=== PATIENT | male | born 1940 | race Caucasian/White ===

== ENCOUNTER 2021-03-07 06:10 | Emergency (ER) | payer OTHER, MEDICARE, SELFPAY ==
[2021-03-07 06:11] VITALS: BP 95/50; PULSE 92; RESP 16; TEMP 36; O2SAT 92; BMI 41.6
[2021-03-07 06:33] VITALS: BP 115/87; PULSE 92; RESP 16; O2SAT 92
--- NOTE | 2021-03-07 06:57 | CT_ITS ---
STUDY: CT CERVICAL SPINE WITHOUT CONTRAST REASON FOR EXAM: Male, 80 years old. fall RADIATION DOSAGE (If Supplied By Facility): CTDIvol = ( 31.88 ) mGy, DLP = ( 674.68 ) mGycm TECHNIQUE: High resolution transaxial imaging was performed without contrast material. Sagittal and coronal images were reconstructed. Individualized dose optimization techniques were used for this CT. COMPARISON: None FINDINGS: Normal craniovertebral junction. There are degenerative changes of the anterior atlantoaxial articulation. Normal odontoid process. There is straightening of the normal cervical lordosis. Normal vertebral bodies and posterior osseous elements. Anterior listhesis C2 on C3, C4 and C5, retrolisthesis C5 on C6. There is sclerosis of endplates, disc space narrowing, uncovertebral and facet arthropathy. C2-3: Ankylosis of the left facet joints. Normal central canal and intervertebral neuroforamina. C3-4: Right greater than left uncovertebral arthropathy and spurring. Normal central canal and moderate to severe narrowing of the right intervertebral neuroforamina. C4-5: Normal central canal and moderate narrowing of the intervertebral neuroforamina. C5-6: Severe endplate sclerosis, anterior and posterior spurring, disc space narrowing severe neural foramina narrowing and mild spinal canal stenosis. C6-7: Anterior and posterior spurring, moderate stenosis of central canal and intervertebral neuroforamina. C7-T1: Significant disc space narrowing, spurring. Normal central canal and mild narrowing of the intervertebral neuroforamina. Normal visualized soft tissue structures. CT/Spine Cervical without Contras IMPRESSION: Multilevel degenerative changes, as described above. There is straightening of the normal lordotic curve, a nonspecific finding, which may be due to positioning or which might be due to muscle spasm. There is no acute displaced fracture or dislocation. Electronically Signed: Gisselle Vazquez MD at 7:42 EDT , Service support ,
--- NOTE | 2021-03-07 06:57 | RAD_ITS ---
STUDY: X-RAY - PELVIS AND LEFT HIP REASON FOR EXAM: Male, 80 years old. pain TECHNIQUE: 4 views of the pelvis and hip. 5 images COMPARISON: None. FINDINGS: There are degenerative changes of the visualized lumbar spine. There are multiple calcified phleboliths. There is narrowing with cortical sclerosis and osteophyte formation of the sacroiliac joint consistent with degenerative osteoarthritic changes. Maintained bilateral superior and inferior pubic rami. Maintained pubic symphysis. There are osteoarthritic changes of the femoral head with marginal osteophyte formation. Normal acetabulum. There is moderate articular joint space narrowing of the hip. RAD/HIP, UNI W/ Pelvis 2-3 Views IMPRESSION: Degenerative changes. There is no acute displaced fracture or dislocation. Electronically Signed: Gisselle Vazquez MD at 7:47 EDT , Service support ,
--- NOTE | 2021-03-07 06:57 | CT_ITS ---
STUDY: CT BRAIN WITHOUT CONTRAST REASON FOR EXAM: Male, 80 years old. head injury RADIATION DOSAGE (If Supplied By Facility): CTDIvol = ( 44.99 ) mGy, DLP = ( 796.11 ) mGycm TECHNIQUE: Transaxial CT imaging of the brain was performed without administration of intravenous contrast material. Individualized dose optimization techniques were used for this CT. COMPARISON: No relevant priors. FINDINGS: Normal soft tissue structures. Normal calvarium. Normal size ventricles and extra-axial spaces for the patient''s age. Normal white matter tracts of the cerebral hemispheres. Normal basal ganglia and thalami. Normal brainstem. Normal cerebellum. There is no intracranial hemorrhage. There are no findings of an acute ischemic infarction. Nodular opacification in the bilateral maxillary antra possible retention cyst. Mild mucosal thickening of the ethmoid sinuses. Peridental lucency. Intracranial arteriosclerosis of the carotid and vertebral arteries. CT/Brain/Head without Contrast IMPRESSION: There is no acute intracranial pathology. Other nonacute findings as outlined above. Electronically Signed: Gisselle Vazquez MD at 7:34 EDT , Service support ,
--- NOTE | 2021-03-07 07:31 | EX.ED.DYSGE1 ---
HPI History of Present Illness Chief Complaint: Lower Extremity Injury Narrative Narrative: Patient is a 80-year-old male who still lives at home alone. He states he awoke this morning to take his Synthroid as he normally does. He reports that he was walking towards his medicine counter when he felt pain in his left hip. He states he would turn around to walk back to his bed within the pain caused him to fall landing on his left side. He denies striking his head or any loss of consciousness or blood thinner use. He states that he was able to call 911 rather quickly but that he is not been able to ambulate and secondary to his he was brought in for evaluation [facility] Medical History Hypertension Hypothyroidism Kidney stones Myocardial infarct Non-smoker Home Medications aspirin 81 mg PO DAILY 03/07/21 [History Last Taken Unknown] atorvastatin 40 mg PO QHS 03/07/21 [History Last Taken Unknown] carvedilol 12.5 mg PO BID 03/07/21 [History Last Taken Unknown] hydrochlorothiazide 25 mg PO DAILY 03/07/21 [History Last Taken Unknown] losartan 100 mg PO DAILY 03/07/21 [History Last Taken Unknown] Allergy/AdvReac Type Severity Reaction Status Date / Time lisinopril Allergy Other Verified 03/07/21 06:19 Surgical History (Updated 03/07/21 @ 06:37 by Shailesh Allison) Stented coronary artery Social History Smoking Status: Never smoker ROS ROS ED Constitutional Constitutional ED: Denies chills or fever(s) ENT ENT ED: Denies sore throat Cardiovascular Cardiovascular: Denies chest pain Respiratory/Chest Respiratory/Chest: Denies cough or dyspnea Gastrointestinal Gastrointestinal: Denies abdominal pain, diarrhea, nausea or vomiting Genitourinary Genitourinary ED: Denies dysuria Musculoskeletal Musculoskeletal: Reports other Details: Positive left hip pain ; Denies myalgias Integumentary Denies Abrasions or rash Neurologic Neurologic: Denies headache(s) Hematologic/Lymphatic Hematologic/Lymphatic: Denies easy bleeding or easy bruising EXAM Physical Exam Const Vital Signs: 03/07/21 06:11 03/07/21 06:33 Temperature 96.8 F L Temperature Source Temporal Pulse Rate 92 92 Respiratory Rate 16 16 Blood Pressure 95/50 L 115/87 H Blood Pressure Mean 65 96 Pulse Ox 92 92 Oxygen Delivery Method Room Air Room Air Positive well nourished, well developed and obese General Appearance ED: well developed Nutritional Appearance: obese HEENT Reports moist mucous membranes HEENT Narrative: No signs of depressive basal skull fracture Eyes PERRL and EOMs intact bilaterally Neck supple Neck Narrative: No bony deformity or step off of the cervical spine but there is mild midline pain with palpation Chest Wall palpation of chest normal Resp normal respiratory effort and clear to auscultation bilaterally Cardio regular rate and regular rhythm GI normal to inspection, nondistended, normoactive bowel sounds, non-tender and non-distended Auscultation: normoactive bowel sounds Palpation: soft Back/Spine Back/Spine Narrative: No bony deformity or step off of the thoracic or lumbar spine no midline tenderness noted Extremity Extremity Narrative: Pelvis is stable there is no shortening or external rotation of either lower extremity. There is pain on palpation along the left greater trochanter region of the left femur. No overlying soft tissue changes to suggest trauma or infection. Neuro oriented x3 and CN's II-XII intact bilaterally Sensorium / Orientation: alert Psych mental status grossly normal Skin no rashes or lesions noted MDM MDM MDM Narrative Medical decision making narrative: Patient reported mechanical false I felt no need for cardiac or syncope workup. With the fall CTs and x-rays will be obtained. I feel that if x-rays and images revealed no acute traumatic finding and patient cannot ambulate he will need placed in a rehab center for further treatment Discharge Plan Triage Chief Complaint: Lower Extremity Injury ED Provider: Olaf Willoughby Dx/Rx/DC Orders Prescriptions: No Action atorvastatin 40 mg Tablet 40 mg PO QHS RF: 0 carvedilol 12.5 mg Tablet 12.5 mg PO BID RF: 0 aspirin 81 mg Tablet 81 mg PO DAILY RF: 0 hydrochlorothiazide 25 mg Tablet 25 mg PO DAILY RF: 0 losartan 100 mg Tablet 100 mg PO DAILY RF: 0 Primary Care Provider: [place]
[2021-03-07] MEDS: HYDROcodone Bitartrate/Apap 5/325 Tablet PO (07:55)
[2021-03-07 10:09] VITALS: BP 138/74; PULSE 66; RESP 15; O2SAT 98
[2021-03-07] MEDS: predniSONE 20 MG Tablet 60 MG PO (10:10)
== END 2021-03-07 10:33 | disposition home or self-care (01) ==
PROVIDERS: Emergency Provider Emergency Medicine
DX: S89.92XA Unspecified injury of left lower leg, initial encounter (principal); I25.2 Old myocardial infarction; E66.9 Obesity, unspecified; E03.9 Hypothyroidism, unspecified; I10 Essential (primary) hypertension; Z79.82 Long term (current) use of aspirin; Z79.899 Other long term (current) drug therapy; Z87.442 Personal history of urinary calculi; W19.XXXA Unspecified fall, initial encounter
CPT/HCPCS: 70450; 72125; 73502; 99285

== ENCOUNTER 2021-03-10 17:22 | Emergency (ER) | payer OTHER, SELFPAY ==
[2021-03-10 17:22] VITALS: BP 147/110; PULSE 102; RESP 18; TEMP 36.8; O2SAT 93; BMI 43.4
--- NOTE | 2021-03-10 17:47 | EDS_ITS ---
HPI History of Present Illness Chief Complaint: Fall Informant: patient Narrative Narrative: 80-year-old male presenting after fall. Patient states that he did not lift his leg up completely and caught his foot on a step and fell forward hitting his side on the steps. He did hit his head. He did not lose consciousness. He was seen in the ED 3 days ago for another mechanical fall. He states his hip pain from that fall is improving. Prior similar symptoms: Yes Recent Illness/Hospitalization: No PFSH PFSH Medical History Hypertension Hypothyroidism Kidney stones Myocardial infarct Non-smoker Home Medications acetaminophen [Tylenol 8 Hour] 650 mg PO Q8H PRN #20 tab 03/07/21 [Rx Last Taken Unknown] aspirin 81 mg PO DAILY 03/07/21 [History Last Taken Unknown] atorvastatin 40 mg PO QHS 03/07/21 [History Last Taken Unknown] carvedilol 12.5 mg PO BID 03/07/21 [History Last Taken Unknown] hydrochlorothiazide 25 mg PO DAILY 03/07/21 [History Last Taken Unknown] losartan 100 mg PO DAILY 03/07/21 [History Last Taken Unknown] prednisone 40 mg PO DAILY #8 tab 03/07/21 [Rx Last Taken Unknown] Allergy/AdvReac Type Severity Reaction Status Date / Time lisinopril Allergy Other Verified 03/10/21 17:27 Surgical History Stented coronary artery Social History Smoking Status: Never smoker ROS ROS ED Constitutional Constitutional ED: Denies fever(s) Eyes Eyes: Denies change in vision ENT ENT ED: Denies rhinorrhea or sore throat Cardiovascular Cardiovascular: Denies chest pain or palpitations Respiratory/Chest Respiratory/Chest: Reports other Details: left chest wall pain ; Denies cough or dyspnea Gastrointestinal Gastrointestinal: Denies abdominal pain, diarrhea, nausea or vomiting Genitourinary Genitourinary ED: Denies dysuria Musculoskeletal Musculoskeletal: Denies myalgias Integumentary Denies rash Neurologic Neurologic: Denies headache(s) Psychiatric Psychiatric: Denies suicidal thoughts EXAM Physical Exam Const Vital Signs: 03/10/21 17:22 03/10/21 17:28 03/10/21 19:45 Temperature 98.2 F Temperature Source Oral Pulse Rate 102 H 77 Respiratory Rate 18 16 Respiratory Effort Normal Non-Labored Respiratory Depth Normal Respiratory Pattern Normal Blood Pressure 147/110 H 146/97 H Blood Pressure Mean 122 113 Pulse Ox 93 95 Oxygen Delivery Method Room Air Room Air Room Air Positive well nourished and well developed General Appearance ED: well developed HEENT Reports normocephalic and head/scalp atraumatic Eyes PERRL and EOMs intact bilaterally Neck supple Neck Narrative: no midline tenderness General: Negative for tenderness Chest Wall inspection of chest normal Resp normal respiratory effort and clear to auscultation bilaterally Resp Narrative: left chest wall tenderness with no crepitus Cardio regular rate and regular rhythm GI non-distended GI Narrative: reducible hernia Palpation: soft and tender LUQ; Negative for guarding or rebound tenderness present no CVA tenderness Extremity Extremity Narrative: right knee mild abrasion. Active full range of motion Neuro oriented x3 Sensorium / Orientation: alert Psych mental status grossly normal Skin no rashes or lesions noted and no wounds MDM MDM MDM Narrative Medical decision making narrative: Patient was given Tylenol, declined other pain medication. Creatinine is 1.76. Patient was given IV fluids. CT head and cervical spine show no acute process. CT chest abdomen pelvis shows acute fracture left anterior lateral 5th rib. No other acute abnormality in the ch est. 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 No solid organ injury. Right knee x- ray shows no acute fracture. [facility] He declined pain medication. He was given an incentive spirometer. Advised return to ED for worsening complaints. Lab Data Attestation: I reviewed the patient's lab results. Labs: Laboratory Results - last 24 hr 03/10/21 18:17 Sodium 143 Potassium 4.0 Chloride 104 Carbon Dioxide 34.0 H Anion Gap 5 BUN 41 H Creatinine 1.76 H Estim Creat Clear Calc 32.93 Est GFR (MDRD) Af Amer 48 L Est GFR (MDRD) Non-Af 40 L BUN/Creatinine Ratio 23.3 H Glucose 169 H Calcium 8.7 Radiography Diagnostic Testing: Clinical Impression(s) from Imaging Studies Brain CT 03/10/21 19:00 IMPRESSION: No acute findings in the head/brain and unchanged since 03/07/2021. Electronically Signed: Cleve Platt MD at 19:29 EDT , Service support , Cervical Spine CT 03/10/21 19:00 IMPRESSION: 1. No CT evidence of acute fracture the cervical spine and the craniocervical junction. 2. Mild degenerative anterolisthesis of C2 on C3, C4 on C5 and T1 on T2 are unchanged. 3. No interval changes or new findings when compared to 03/07/2021. Electronically Signed: Cleve Platt MD at 19:33 EDT , Service support , Chest/Abdomen/Pelvis CT 03/10/21 19:00 IMPRESSION: 1. Acute fracture of the left anterior lateral fifth rib. 2. No other acute abnormality in the chest. 3. 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 4. 6.7 mm nonobstructing stone in the right kidney and 7.7 mm nonobstructing stone in the left kidney. 5. No solid organ injury in the abdomen and pelvis. Electronically Signed: Cleve Platt MD at 19:43 EDT , Service support , Knee X-Ray 03/10/21 19:06 IMPRESSION: 1. No acute fracture or dislocation of the right knee. 2. 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 Electronically Signed: Cleve Platt MD at 20:06 EDT , Service support , Discharge Plan Triage Chief Complaint: Fall ED Provider: Destiny Joyce Dx/Rx/DC Orders Prescriptions: No Action atorvastatin 40 mg Tablet 40 mg PO QHS RF: 0 carvedilol 12.5 mg Tablet 12.5 mg PO BID RF: 0 aspirin 81 mg Tablet 81 mg PO DAILY RF: 0 hydrochlorothiazide 25 mg Tablet 25 mg PO DAILY RF: 0 losartan 100 mg Tablet 100 mg PO DAILY RF: 0 prednisone 20 mg tablet 40 mg PO DAILY Qty: 8 RF: 0 acetaminophen [Tylenol 8 Hour] 650 mg tablet extended release 650 mg PO Q8H PRN (Reason: pain) Qty: 20 RF: 0 Primary Care Provider: Hospital,[facility]
[2021-03-10] MEDS: Acetaminophen 500 MG Tablet 1000 MG PO (18:00)
[2021-03-10 18:48] LABS: Anion Gap 5 (5-15); BUN 41 mg/dL (7-18); BUN/Creat Ratio 23.3 RATIO (10-20); Calcium,Total 8.7 mg/dL (8.5-10.1); Chloride 104 mmol/L (98-107); Creatinine, Serum 1.76 mg/dL (0.70-1.30); EST Glomerular Filtration Rate 40 mL/min (>60); Est Glom Filt Rate - Afr Amer 48 mL/min (>60); Estimated Creatinine Clearance 32.93 ml/min; Glucose 169 mg/dL (74-106); Sodium Level 143 mmol/L (136-145)
--- NOTE | 2021-03-10 19:00 | CT_ITS ---
EXAM: CT HEAD WITHOUT INTRAVENOUS CONTRAST CLINICAL INDICATION: Fall injury. TECHNIQUE: Multiple axial images were obtained of the head without intravenous contrast. This CT exam was performed using one or more of the following dose reduction techniques: automated exposure control, adjustment of the mA and/or kV according to patient size, and/or use of iterative reconstruction technique. This report was created using [employer] report generation technology. COMPARISON: CT head without contrast 03/07/2021. FINDINGS: BRAIN AND EXTRA-AXIAL SPACES: Unremarkable. No intra- or extra-axial hemorrhage. No evidence of acute infarct. No intracranial mass or mass effect. There is preservation of the medellin/white matter interface. Posterior fossa structures are unremarkable. Ventricles are appropriate for age. No hydrocephalus. Basal cisterns are patent. BONES/JOINTS: Unremarkable. No discrete lytic or blastic abnormalities. VASCULATURE: Mild tubular calcifications in the cavernous segments of both internal carotid arteries are unchanged. Minimal calcified plaque in the intradural segment of the right vertebral artery. SINUSES: Benign mucus retention cysts in the maxillary sinuses are unchanged. MASTOID AIR CELLS: Unremarkable. Clear. ORBITS: Visualized globes, extraocular muscles, optic nerves and retrobulbar fat appear unremarkable. CT/Brain/Head without Contrast IMPRESSION: No acute findings in the head/brain and unchanged since 03/07/2021. Electronically Signed: Cleve Platt MD at 19:29 EDT , Service support ,
--- NOTE | 2021-03-10 19:00 | CT_ITS ---
EXAM: CT CHEST, ABDOMEN AND PELVIS WITH INTRAVENOUS CONTRAST CLINICAL INDICATION: Fall injury. TECHNIQUE: Helically acquired images were obtained of the chest, abdomen and pelvis with intravenous contrast. This CT exam was performed using one or more of the following dose reduction techniques: automated exposure control, adjustment of the mA and/or kV according to patient size, and/or use of iterative reconstruction technique. This report was created using [employer] report generation technology. CONTRAST: IV 100mL [id number] COMPARISON: None. FINDINGS: ARTIFACTS: Motion degradation artifacts. CHEST: LUNGS AND PLEURAL SPACES: Unremarkable. No mass. No consolidation or edema. No pleural effusion or thickening. No pneumothorax. HEART: Cardiomegaly. Normal pericardium. MEDIASTINUM: Unremarkable. No mediastinal or hilar adenopathy. Esophagus is unremarkable. No hiatal hernia. THYROID: Unremarkable. No thyroid lesions. ABDOMEN: LIVER: Unremarkable. Homogeneous. No focal mass. GALLBLADDER AND BILE DUCTS: Unremarkable. No calcified gallstones. No gallbladder distention or wall edema. No intra- or extrahepatic biliary ductal dilation. PANCREAS: Unremarkable. No focal cystic or solid mass. SPLEEN: Unremarkable. Normal size without focal cystic or solid mass. ADRENALS: Unremarkable. No nodules. KIDNEYS AND URETERS: 6.7 mm nonobstructing stone in the right lower renal pole and 7.7 mm nonobstructing stone in the left upper renal pole. No hydronephrosis in both kidneys. STOMACH AND BOWEL: Prominent right anterior lower abdominal wall hernia containing heterogeneous density of omental fat suggesting at least partial omental ischemic infarction. No herniated bowel. No stomach or bowel distention. No focal inflammatory change. PELVIS: APPENDIX: No evidence of acute appendicitis. BLADDER: Unremarkable. REPRODUCTIVE: Unremarkable as visualized. No mass. CHEST, ABDOMEN and PELVIS: INTRAPERITONEAL SPACE: Unremarkable. No ascites or other fluid collection. No free air. BONES/JOINTS: Acute fracture of the left fifth anterior lateral rib. Old anterior wedge compression fracture of the upper T8 vertebral body. Degenerative disc space height narrowing with degenerative vacuum phenomenon at T8-T9, T9-T10, T10-T11, T11-T12, L1-L2, L2-L3, L3-L4, L4-L5 and L5-S1 disc space levels. Small left-sided L1 benign vertebral body hemangioma. No suspicious lytic or blastic abnormality. SOFT TISSUES: See above. VASCULATURE: Unremarkable. Aorta is non-dilated. No aortic dissection. No obvious central pulmonary embolism although this study was not performed with the pulmonary embolism protocol. LYMPH NODES: Unremarkable. No enlarged lymph nodes. CT/CT Chest, Abd, Pel w/Contrast IMPRESSION: 1. Acute fracture of the left anterior lateral fifth rib. 2. No other acute abnormality in the chest. 3. 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 4. 6.7 mm nonobstructing stone in the right kidney and 7.7 mm nonobstructing stone in the left kidney. 5. No solid organ injury in the abdomen and pelvis. Electronically Signed: Cleve Platt MD at 19:43 EDT , Service support ,
--- NOTE | 2021-03-10 19:00 | CT_ITS ---
EXAM: CT CERVICAL SPINE WITHOUT INTRAVENOUS CONTRAST CLINICAL INDICATION: Fall injury. Right TECHNIQUE: Helically acquired images were obtained of the cervical spine without intravenous contrast. 2D reformatted images were reviewed. This CT exam was performed using one or more of the following dose reduction techniques: automated exposure control, adjustment of the mA and/or kV according to patient size, and/or use of iterative reconstruction technique. This report was created using [employer] report [employer] technology. COMPARISON: CT cervical spine without contrast 03/07/2021. FINDINGS: VERTEBRAE: Minimal degenerative anterolisthesis of C2 on C3, C4 on C5 and T1 on T2 are unchanged. DISCS/SPINAL CANAL/NEURAL FORAMINA: Pronounced disc space height narrowing with endplate sclerosis at C5-C6 and C6-C7 disc space levels are unchanged. Ankylosis of the left C2-C3 facet joint was present previously. Moderate stenosis of the right C3-C4 facet joint and moderate stenosis of the left C4-C5 facet joint are unchanged. Moderate stenosis of the bilateral C5-C6 intervertebral neural foramina and bilateral C6-C7 intervertebral neural foramina are unchanged. SOFT TISSUES: Unremarkable. No prevertebral soft tissue swelling. LYMPH NODES: Unremarkable. No cervical adenopathy. LUNG APICES: Unremarkable as visualized. Clear. CT/Spine Cervical without Contras IMPRESSION: 1. No CT evidence of acute fracture the cervical spine and the craniocervical junction. 2. Mild degenerative anterolisthesis of C2 on C3, C4 on C5 and T1 on T2 are unchanged. 3. No interval changes or new findings when compared to 03/07/2021. Electronically Signed: Cleve Platt MD at 19:33 EDT , Service support ,
--- NOTE | 2021-03-10 19:06 | RAD_ITS ---
EXAM: XR RIGHT KNEE, 1 OR 2 VIEWS CLINICAL INDICATION: Fall injury. TECHNIQUE: Frontal and/or lateral views of the right knee. This report was created using [employer] report [employer] technology. COMPARISON: None. FINDINGS: BONES/JOINTS: Pronounced narrowing with sclerosis of the articular surfaces of the medial femorotibial compartment. Osteophytic spur in the medial proximal tibial condyle. Mild degenerative narrowing of the patellofemoral articulation. Tripartite patella is a developmental variation of normal. No acute fracture. No subluxation. Normal alignment. SOFT TISSUES: Soft tissue swelling overlying the patella, above the patella and below the patella. No radiopaque foreign body. RAD/Knee 1 or 2 Views IMPRESSION: 1. No acute fracture or dislocation of the right knee. 2. 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 Electronically Signed: Cleve Platt MD at 20:06 EDT , Service support ,
[2021-03-10] MEDS: 0.9% Normal Saline 1,000 ML 999 ML IV (19:18)
[2021-03-10 19:45] VITALS: BP 146/97; PULSE 77; RESP 16; O2SAT 95
[2021-03-10 21:14] VITALS: BP 146/90; PULSE 80; RESP 16; O2SAT 95
== END 2021-03-10 21:37 | disposition home or self-care (01) ==
PROVIDERS: Emergency Provider Emergency Medicine
DX: S22.32XA Fracture of one rib, left side, initial encounter for closed fracture (principal); I10 Essential (primary) hypertension; I25.2 Old myocardial infarction; Z79.82 Long term (current) use of aspirin; Z79.52 Long term (current) use of systemic steroids; Z79.899 Other long term (current) drug therapy; W10.9XXA Fall (on) (from) unspecified stairs and steps, initial encounter
CPT/HCPCS: 36415; 70450; 71260; 72125; 73560; 74177; 80048; 96360; 99285; Q9967; A4216

== ENCOUNTER 2021-04-07 23:31 | Emergency (ER) | payer OTHER, SELFPAY ==
[2021-04-07 23:31] VITALS: BP 124/78; PULSE 82; RESP 15; TEMP 36.4; O2SAT 98; BMI 40.9
[2021-04-07 23:41] LABS: Bedside Glucose 149 mg/dL (70-110)
--- NOTE | 2021-04-07 23:45 | CT_ITS ---
STUDY: CT ABDOMEN AND PELVIS WITH CONTRAST REASON FOR EXAM: Male, 80 years old. Incarcerated umbilical hernia RADIATION DOSAGE (If Supplied By Facility): CTDIvol = ( 31.42 ) mGy, DLP = ( 1828.31 ) mGycm TECHNIQUE: Transaxial images were obtained from the dome of the diaphragm to the symphysis pubis without oral contrast. IV 100mL Isovue-370 was administered. Sagittal and coronal images were reconstructed. Individualized dose optimization techniques were used for this CT. COMPARISON: None. FINDINGS: The visualized lung bases are unremarkable. The visualized portions of the heart are within normal limits. Left lobe liver cyst, otherwise unremarkable liver. Normal gallbladder and extrahepatic biliary system. Normal spleen. There is diffuse atrophy of the pancreas. Normal bilateral adrenal glands. Bilateral nonobstructing nephroliths, largest in the right lower pole measuring 8.4 mm and largest in the left upper pole measuring 8.6 mm. Otherwise, mild atrophy of the kidneys. Normal visualized stomach. Proximal loops of small bowel demonstrating mild distention with air-fluid levels. There is transition point in the central mid abdomen. There is a ventral wall abdominal hernia containing fluid and fat however, no loops of bowel. Remainder of the small bowel is within normal limits. Large bowel demonstrates chronic diverticulosis with acute diverticulitis. The appendix is visualized and appears normal. Normal abdominal aorta. Normal inferior vena cava. Normal retroperitoneum. Normal urinary bladder. There are prostatic calcifications. Normal abdominal wall. Normal osseous structures. CT/Abdomen/Pelvis W IV Cont ONLY IMPRESSION: Multiple loops of proximal small bowel demonstrating distention with air-fluid levels. Transition point in the central abdomen adjacent to a ventral wall hernia containing fat and fluid. No evidence of loops of bowel within this hernia however. Possible adhesions. Early small bowel obstruction should be considered a possibility. Remainder the exam is within normal limits Electronically Signed: Yves Gallagher DO at 1:06 EST Tel , Service support ,
--- NOTE | 2021-04-07 23:49 | EX.ED.DYSGE1 ---
HPI History of Present Illness Chief Complaint: Dizziness Narrative Narrative: Patient is a 80-year-old male who was seen twice in February secondary to falls. He states that this evening he stood up and he felt a sharp pain in his abdomen. He states after the pain came on he felt lightheaded and dizzy but did not fall. He reports the pain in his abdomen has been constant since its onset and when he pushes on the area it feels hard. Secondary to this he presents for evaluation PFSH PFSH Medical History Hypertension Hypothyroidism Kidney stones Myocardial infarct Non-smoker Home Medications acetaminophen [Tylenol 8 Hour] 650 mg PO Q8H PRN #20 tab 03/07/21 [Rx Last Taken Unknown] aspirin 81 mg PO DAILY 03/07/21 [History Last Taken Unknown] atorvastatin 40 mg PO QHS 03/07/21 [History Last Taken Unknown] carvedilol 12.5 mg PO BID 03/07/21 [History Last Taken Unknown] hydrochlorothiazide 25 mg PO DAILY 03/07/21 [History Last Taken Unknown] losartan 100 mg PO DAILY 03/07/21 [History Last Taken Unknown] prednisone 40 mg PO DAILY #8 tab 03/07/21 [Rx Last Taken Unknown] Allergy/AdvReac Type Severity Reaction Status Date / Time lisinopril Allergy Other Verified 03/10/21 17:27 Surgical History Stented coronary artery Social History Smoking Status: Never smoker ROS ROS ED Constitutional Constitutional ED: Denies chills or fever(s) ENT ENT ED: Denies sore throat Cardiovascular Cardiovascular: Denies chest pain Respiratory/Chest Respiratory/Chest: Denies cough or dyspnea Gastrointestinal Gastrointestinal: Reports abdominal pain; Denies diarrhea, nausea or vomiting Genitourinary Genitourinary ED: Denies dysuria Musculoskeletal Musculoskeletal: Denies myalgias Integumentary Denies rash Neurologic Neurologic: Reports other Details: Positive dizziness ; Denies headache(s) Hematologic/Lymphatic Hematologic/Lymphatic: Denies easy bleeding or easy bruising EXAM Physical Exam Const Vital Signs: 04/07/21 23:31 04/08/21 00:04 04/08/21 00:12 Temperature 97.5 F L Temperature Source Axillary Pulse Rate 82 81 Respiratory Rate 15 16 Respiratory Pattern Normal Blood Pressure 124/78 H 120/81 H Blood Pressure Mean 93 94 Pulse Ox 98 95 Oxygen Delivery Method Room Air Room Air Positive well nourished, well developed and obese General Appearance ED: well developed Nutritional Appearance: obese HEENT Reports moist mucous membranes Eyes PERRL and EOMs intact bilaterally Neck supple Resp normal respiratory effort and clear to auscultation bilaterally Cardio regular rate and regular rhythm GI GI Narrative: Abdomen is obese and soft with normal active bowel sounds there is an umbilical hernia present that is incarcerated and tender to palpation. No surrounding secondary changes to suggest infection Extremity normal to inspection Neuro oriented x3 and CN's II-XII intact bilaterally Sensorium / Orientation: alert Psych mental status grossly normal Skin no rashes or lesions noted MDM MDM MDM Narrative Medical decision making narrative: Patient presented to the ER with an incarcerated umbilical hernia. Secondary to this I ordered basic laboratory studies and patient had an ice pack placed on the hernia and was given pain medication. I also elected perform a CT scan of his abdomen based on the incarcerated hernia. He reported that his dizziness only occurred after he stood up and felt the pain from the hernia and therefore did not feel there was a need for a cardiac evaluation. Also patient did not strike his head and he has had 2 normal head CTs in the past 30 days so I felt no need for repeat head CT. The patient had manual pressure applied to the abdomen prior to the CT scan after he had ice and pain medication and the hernia became reducible. The CT scan documented the hernia but did not show any incarceration. It did show air-fluid levels which could be early bowel obstruction but I feel this is from the incarceration and now that as this is resolved there is no concern for obstruction. Patient is also not having vomiting or constipation. After the incarcerated hernia was resolved the patient was able to ambulate with a steady gait to and from the bathroom. Therefore at this time with resolution of the hernia and the fact he can ambulate with a steady gait he is safe for discharge Lab Data Attestation: I reviewed the patient's lab results. Labs: Laboratory Results - last 24 hr 04/07/21 04/07/21 04/07/21 00:02 00:02 00:02 WBC 7.7 RBC 4.74 Hgb 14.3 Hct 43.7 MCV 92.2 MCH 30.2 MCHC 32.7 RDW Std Deviation 47.4 H RDW Coeff of [place] 13.8 Plt Count 153 MPV 10.4 Immature Gran % (Auto) 0.500 Neut % (Auto) 76.9 H Lymph % (Auto) 14.3 L [place] % (Auto) 5.7 Eos % (Auto) 2.2 Baso % (Auto) 0.4 Absolute Neuts (auto) 5.9 Absolute Lymphs (auto) 1.10 Nucleated RBC % 0 PT 13.2 INR 1.1 APTT 28.1 Sodium 139 Potassium 3.9 Chloride 104 Carbon Dioxide 30.0 Anion Gap 5 BUN 16 Creatinine 1.28 Estim Creat Clear Calc 48.32 Est GFR (MDRD) Af Amer 70 Est GFR (MDRD) Non-Af 58 L BUN/Creatinine Ratio 12.5 Glucose 134 H Lactic Acid Calcium 8.6 POC Glucose 04/07/21 04/07/21 00:02 23:36 WBC RBC Hgb Hct MCV MCH MCHC RDW Std Deviation RDW Coeff of [place] Plt Count MPV Immature Gran % (Auto) Neut % (Auto) Lymph % (Auto) [place] % (Auto) Eos % (Auto) Baso % (Auto) Absolute Neuts (auto) Absolute Lymphs (auto) Nucleated RBC % PT INR APTT Sodium Potassium Chloride Carbon Dioxide Anion Gap BUN Creatinine Estim Creat Clear Calc Est GFR (MDRD) Af Amer Est GFR (MDRD) Non-Af BUN/Creatinine Ratio Glucose Lactic Acid 0.9 Calcium POC Glucose 149 H Radiography Diagnostic Testing: Clinical Impression(s) from Imaging Studies Abdomen/Pelvis CT 04/07/21 23:45 IMPRESSION: Multiple loops of proximal small bowel demonstrating distention with air-fluid levels. Transition point in the central abdomen adjacent to a ventral wall hernia containing fat and fluid. No evidence of loops of bowel within this hernia however. Possible adhesions. Early small bowel obstruction should be considered a possibility. Remainder the exam is within normal limits Electronically Signed: Yves Gallagher DO at 1:06 EST Tel , Service support , Discharge Plan Triage Chief Complaint: Dizziness ED Provider: Olaf Willoughby Dx/Rx/DC Orders Clinical Impression: Incarcerated umbilical hernia Instructions: ED Hernia (Adult) Prescriptions: No Action atorvastatin 40 mg Tablet 40 mg PO QHS RF: 0 carvedilol 12.5 mg Tablet 12.5 mg PO BID RF: 0 aspirin 81 mg Tablet 81 mg PO DAILY RF: 0 hydrochlorothiazide 25 mg Tablet 25 mg PO DAILY RF: 0 losartan 100 mg Tablet 100 mg PO DAILY RF: 0 prednisone 20 mg tablet 40 mg PO DAILY Qty: 8 RF: 0 acetaminophen [Tylenol 8 Hour] 650 mg tablet extended release 650 mg PO Q8H PRN (Reason: pain) Qty: 20 RF: 0 [facility] [facility] [[facility] Provider] - Disposition Disposition: Home, Self Care
[2021-04-08 00:04] VITALS: BP 120/81; PULSE 81; RESP 16; O2SAT 95
[2021-04-08] MEDS: Ondansetron 4 MG/2 ML Vial IV (00:10)
[2021-04-08] MEDS: fentaNYL 100 MCG/2 ML Ampul 50 MCG IV (00:10)
[2021-04-08 00:14] LABS: Absolute Neutrophil Count 5.9 X10^3/uL (2.0-7.7); Basophil# 0.03 X10^3/uL; Basophil% 0.4 % (0-1); Eosinophil# 0.17 X10^3/uL; Eosinophils% 2.2 % (0-5); Hematocrit 43.7 % (40-54); Hemoglobin 14.3 g/dL (13.0-16.5); Lymphocyte % 14.3 % (19-41); Mean Corp Hgb Conc 32.7 g/dL (32-36); Mean Corpuscular Hgb 30.2 pg (27.0-32.0); Mean Corpuscular Volume 92.2 fL (80-94); Mean Platelet Vol. 10.4 fl (6.2-12.0); Monocyte# 0.44 X10^3/uL; Monocyte% 5.7 % (0-10); NRBC Flagged by Analyzer 0 % (0-5); Neutrophil # 5.91 X10^3/uL (2.7-7.7); Neutrophil % 76.9 % (47-70); Platelet Count 153 K/mm3 (150-450); RBC Distribution Width CV 13.8 % (11.6-14.6); RBC Distribution Width SD 47.4 fl (35.1-43.9); Red Blood Count 4.74 M/mm3 (4.6-6.2); White Blood Count 7.7 K/mm3 (4.4-11.0)
[2021-04-08 00:25] LABS: Anion Gap 5 (5-15); BUN 16 mg/dL (7-18); BUN/Creat Ratio 12.5 RATIO (10-20); Calcium,Total 8.6 mg/dL (8.5-10.1); Chloride 104 mmol/L (98-107); Creatinine, Serum 1.28 mg/dL (0.70-1.30); EST Glomerular Filtration Rate 58 mL/min (>60); Est Glom Filt Rate - Afr Amer 70 mL/min (>60); Estimated Creatinine Clearance 48.32 ml/min; Glucose 134 mg/dL (74-106); Potassium 3.9 mmol/L (3.5-5.1); Sodium Level 139 mmol/L (136-145)
[2021-04-08 00:26] LABS: International Normalized Ratio 1.1; Prothrombin Time (Protime)PT. 13.2 SECONDS (11.7-14.9)
[2021-04-08 00:27] LABS: Partial Thromboplast Time 28.1 Seconds (24.1-36.2)
[2021-04-08 00:36] LABS: Lactic Acid 0.9 mmol/L (0.4-1.9)
[2021-04-08 02:13] VITALS: BP 144/88; PULSE 85; RESP 18; O2SAT 99
[2021-04-08 02:14] VITALS: BP 144/88; PULSE 77; RESP 16; O2SAT 99
== END 2021-04-08 02:28 | disposition home or self-care (01) ==
PROVIDERS: Emergency Provider Emergency Medicine
DX: K42.0 Umbilical hernia with obstruction, without gangrene (principal); E66.9 Obesity, unspecified; I25.2 Old myocardial infarction; I10 Essential (primary) hypertension; Z79.82 Long term (current) use of aspirin; Z87.442 Personal history of urinary calculi; Z79.52 Long term (current) use of systemic steroids; Z79.899 Other long term (current) drug therapy
CPT/HCPCS: 74177; 80048; 82962; 83605; 85025; 85610; 85730; 96374; 96375; 99285; J7040; Q9967; A4216; J2405

== ENCOUNTER 2021-04-23 06:37 | Observation (INO) | payer OTHER, SELFPAY ==
[2021-04-23 06:38] VITALS: BP 142/90; PULSE 86; RESP 18; TEMP 36; O2SAT 96; BMI 41.5
--- NOTE | 2021-04-23 07:13 | RAD_ITS ---
STUDY: X-RAY - PELVIS AND BILATERAL HIPS REASON FOR EXAM: Bilateral hip pain, no specific injury. TECHNIQUE: AP view of the pelvis.? 2 views of the right hip, and 2 views of the left hip were obtained. COMPARISON: Radiographs 03/07/2021. FINDINGS: There are pelvic phleboliths. There is arthrosis of the left sacroiliac joint. Normal bilateral superior and inferior pubic rami. Normal pubic symphysis. Normal bilateral ischial tuberosities. Normal visualized right femoral head. Normal right acetabulum. Normal right hip joint. Normal visualized left femoral head. Normal left acetabulum. There are marginal osteophytes and joint space narrowing of the left hip joint as on the prior study. RAD/Hips B/L min 2 views w/ Pelvis IMPRESSION: Left hip arthrosis. Left sacroiliac arthrosis. Electronically Signed: Ochoa Benavides MD at 8:40 EST Tel , Service support ,
--- NOTE | 2021-04-23 07:24 | EX.ED.DYSGE1 ---
HPI History of Present Illness Chief Complaint: Lower Extremity Injury Informant: patient Narrative Narrative: Patient presents secondary to bilateral hip pain. Pain is been ongoing for some time. He was seen in the ER twice earlier this month with falls. Patient [facility]. He reports frustration with getting care and improvement that he needs. He did state to me that if he had he had a gun last night he might of killed himself. PFSH PFSH Medical History Hypertension Hypothyroidism Kidney stones Myocardial infarct Non-smoker Home Medications acetaminophen [Tylenol 8 Hour] 650 mg PO Q8H PRN #20 tab 03/07/21 [Rx Last Taken Unknown] aspirin 81 mg PO DAILY 03/07/21 [History Last Taken Unknown] atorvastatin 40 mg PO QHS 03/07/21 [History Last Taken Unknown] carvedilol 12.5 mg PO BID 03/07/21 [History Last Taken Unknown] hydrochlorothiazide 25 mg PO DAILY 03/07/21 [History Last Taken Unknown] losartan 100 mg PO DAILY 03/07/21 [History Last Taken Unknown] prednisone 40 mg PO DAILY #8 tab 03/07/21 [Rx Last Taken Unknown] Synthroid 04/23/21 [History Last Taken Unknown] Allergy/AdvReac Type Severity Reaction Status Date / Time lisinopril Allergy Other Verified 03/10/21 17:27 Surgical History Stented coronary artery Social History Smoking Status: Never smoker ROS ROS ED Constitutional Constitutional ED: Denies chills or fever(s) Eyes Eyes: Denies change in vision ENT ENT ED: Denies sore throat Cardiovascular Cardiovascular: Denies chest pain Respiratory/Chest Respiratory/Chest: Denies cough or dyspnea Gastrointestinal Gastrointestinal: Denies abdominal pain, diarrhea, nausea or vomiting Genitourinary Genitourinary ED: Denies dysuria Musculoskeletal Musculoskeletal: Reports arthralgias; Denies back pain Integumentary Denies rash Neurologic Neurologic: Denies headache(s) or weakness Allergic/Immunologic Allergic/Immunologic ED: Denies urticaria EXAM Physical Exam Const Vital Signs: 04/23/21 06:38 Temperature 96.8 F L Temperature Source Temporal Pulse Rate 86 Respiratory Rate 18 Blood Pressure 142/90 H Blood Pressure Mean 107 Pulse Ox 96 Oxygen Delivery Method Room Air Positive well nourished and well developed General Appearance ED: well developed HEENT Reports moist mucous membranes Eyes PERRL and EOMs intact bilaterally Neck supple Chest Wall inspection of chest normal and palpation of chest normal Resp normal respiratory effort and clear to auscultation bilaterally Cardio regular rate and regular rhythm GI normal to inspection, nondistended, normoactive bowel sounds and non-tender Palpation: soft Extremity Extremity Narrative: Tenderness palpation over the greater trochanters bilaterally. Equal leg lengths. Strong distal pulses. No pain with logroll. Neuro Sensorium / Orientation: alert Psych Mood & Affect: anxious Skin no rashes or lesions noted MDM MDM MDM Narrative Medical decision making narrative: Lab work obtained along with Covid test. Pelvis and bilateral hip x-rays ordered. Lab Data Labs: Laboratory Results - last 24 hr 04/23/21 04/23/21 07:50 07:50 WBC 6.8 RBC 4.40 L Hgb 13.4 Hct 40.8 MCV 92.7 MCH 30.5 MCHC 32.8 RDW Std Deviation 47.6 H RDW Coeff of [place] 14.0 Plt Count 146 L MPV 10.3 Immature Gran % (Auto) 0.400 Neut % (Auto) 73.1 H Lymph % (Auto) 16.5 L [place] % (Auto) 7.1 Eos % (Auto) 2.5 Baso % (Auto) 0.4 Absolute Neuts (auto) 4.9 Absolute Lymphs (auto) 1.12 Nucleated RBC % 0 Sodium 141 Potassium 3.7 Chloride 106 Carbon Dioxide 31.0 Anion Gap 4 L BUN 18 Creatinine 1.17 Estim Creat Clear Calc 52.86 Est GFR (MDRD) Af Amer 77 Est GFR (MDRD) Non-Af 64 BUN/Creatinine Ratio 15.4 Glucose 121 H Calcium 8.2 L Radiography Diagnostic Testing: Clinical Impression(s) from Imaging Studies Hip/Pelvis X-Ray 04/23/21 07:13 IMPRESSION: Left hip arthrosis. Left sacroiliac arthrosis. Electronically Signed: Ochoa Benavides MD at 8:40 EST Tel , Service support , Treatment and Re-Evaluation Comments:: Lab work unremarkable. X-rays reveal chronic arthrosis with no acute findings. Patient was seen by social work. She did make phone calls to the [facility] but they are unable to accommodate him at this time. After she discussed the case with him he did agree for other placement as he is unable to care for himself at home. He will require hospital admission. Hospitalist is on page. Discharge Plan Triage Chief Complaint: Lower Extremity Injury ED Provider: Lexy Carranza Dx/Rx/DC Orders Clinical Impression: Weakness, Hip pain, right Prescriptions: No Action atorvastatin 40 mg Tablet 40 mg PO QHS RF: 0 carvedilol 12.5 mg Tablet 12.5 mg PO BID RF: 0 aspirin 81 mg Tablet 81 mg PO DAILY RF: 0 hydrochlorothiazide 25 mg Tablet 25 mg PO DAILY RF: 0 losartan 100 mg Tablet 100 mg PO DAILY RF: 0 prednisone 20 mg tablet 40 mg PO DAILY Qty: 8 RF: 0 acetaminophen [Tylenol 8 Hour] 650 mg tablet extended release 650 mg PO Q8H PRN (Reason: pain) Qty: 20 RF: 0 Synthroid RF: 0 [facility] Care Provider[facility] [facility] [[facility] Provider] - Disposition Disposition: Acute Care Hospital [facility]
[2021-04-23 08:09] LABS: Absolute Lymphocyte Count 1.12 X10^3/uL (0.83-4.51); Absolute Neutrophil Count 4.9 X10^3/uL (2.0-7.7); Basophil# 0.03 X10^3/uL; Basophil% 0.4 % (0-1); Eosinophil# 0.17 X10^3/uL; Eosinophils% 2.5 % (0-5); Hematocrit 40.8 % (40-54); Hemoglobin 13.4 g/dL (13.0-16.5); Lymphocyte # 1.12 X10^3/ul (0.83-4.51); Lymphocyte % 16.5 % (19-41); Mean Corp Hgb Conc 32.8 g/dL (32-36); Mean Corpuscular Hgb 30.5 pg (27.0-32.0); Mean Corpuscular Volume 92.7 fL (80-94); Mean Platelet Vol. 10.3 fl (6.2-12.0); Monocyte# 0.48 X10^3/uL; Monocyte% 7.1 % (0-10); NRBC Flagged by Analyzer 0 % (0-5); Neutrophil # 4.94 X10^3/uL (2.7-7.7); Neutrophil % 73.1 % (47-70); Platelet Count 146 K/mm3 (150-450); RBC Distribution Width SD 47.6 fl (35.1-43.9); White Blood Count 6.8 K/mm3 (4.4-11.0)
[2021-04-23 08:23] LABS: Anion Gap 4 (5-15); BUN 18 mg/dL (7-18); BUN/Creat Ratio 15.4 RATIO (10-20); Calcium,Total 8.2 mg/dL (8.5-10.1); Chloride 106 mmol/L (98-107); Creatinine, Serum 1.17 mg/dL (0.70-1.30); EST Glomerular Filtration Rate 64 mL/min (>60); Est Glom Filt Rate - Afr Amer 77 mL/min (>60); Estimated Creatinine Clearance 52.86 ml/min; Glucose 121 mg/dL (74-106); Potassium 3.7 mmol/L (3.5-5.1); Sodium Level 141 mmol/L (136-145)
--- NOTE | 2021-04-23 10:55 | CM.ED ---
SOCIAL WORK Referral Source: Dr. Carranza Reason for Consult: Discharge planning Informed by Dr. Carranza, patient wanting to get into the [facility]. Call to [facility], left message for Angeles in Admissions. Awaiting call back at this time. Plan: SHWETHA Tavares, STEEL FABRICATOR, YOUTH MINISTRY DIRECTOR
--- NOTE | 2021-04-23 11:09 | CM.ED ---
Received call back fromAngeles with [facility]. Per Angeles, patient has not been to [facility] since 2004. Patient will need to re-apply and there is a 3-4 month wait list. Patient updated and reports concerns with going home and being able to care for self. Patient believes would benefit from placement and requests this worker speak with Anum from [facility]. Shantel Tavares, PLATE CLEANER, EXPORT ADMINISTRATOR
--- NOTE | 2021-04-23 11:40 | CM.ED ---
Spoke with Anum through [facility]. Per Anum, aware that patient will need to re-apply to [facility] and wait list of 3-4 months. Anum states spoke with [facility] and they are not taking new admissions at this time. Anum recommending this worker contact [facility] as they are in network with [place]. Call to [facility], left message for admissions. Awaiting call back at this time. Dr. Carranza updated. Plan: SHWETHA Tavares, TEACHER OF GIFTED STUDENTS, GENERAL HARDWARE SALESPERSON
--- NOTE | 2021-04-23 12:21 | CM.ED ---
SOCIAL WORK Discussed patient's comment made to physician about If I woulda had a gun I would have shot myself. Patient denies suicidal ideation. Patient states was just feeling helpless, ya know? Patient does not feel safe in the home as he is unable to care for self and reports more confusion. Patient has repeated same information to this worker 3 times. Patient in agreement with [facility] placement and hopes to eventually get into the [facility]. Patient in agreement to have referral faxed to [facility] if able to accommodate patient. Received call back from Admissions with [facility] who reports will need to submit to [place] for authorization and can take 1-[address] Carranza. Referral has been faxed to [facility] at this time. Shantel Tavares, SOFTWARE PROGRAMMER, DEMOLITION HAMMER OPERATOR
--- NOTE | 2021-04-23 12:49 | HP.PCM.HOS_ITS ---
HPI - General HPI Narrative ELVIN HOPPER, is a 80 M who presents with bilateral leg pain. Patient has significant medical comorbidities including hypertension dyslipidemia as well as hypothyroidism. Patient had been seen twice in the ED a month ago with multiple falls. He did sustain a left fifth rib fracture which has healed. Woke up on the morning of his admission with significant pain involving both lower extremities. He apparently did fall. He presented to the emergency department as a result. An assessment of adult failure to thrive was made. Admitted to regular nursing floor with consultation placed to case management to assist with disposition possibly to a [facility] facility for rehab [facility] Medical History Hypertension Hypothyroidism Kidney stones Myocardial infarct Non-smoker Home Medications acetaminophen [Tylenol 8 Hour] 650 mg PO Q8H PRN #20 tab 03/07/21 [Rx Last Taken Unknown] aspirin 81 mg PO DAILY 03/07/21 [History Last Taken Unknown] atorvastatin 40 mg PO QHS 03/07/21 [History Last Taken Unknown] carvedilol 12.5 mg PO BID 03/07/21 [History Last Taken Unknown] hydrochlorothiazide 25 mg PO DAILY 03/07/21 [History Last Taken Unknown] losartan 100 mg PO DAILY 03/07/21 [History Last Taken Unknown] prednisone 40 mg PO DAILY #8 tab 03/07/21 [Rx Last Taken Unknown] Synthroid 04/23/21 [History Last Taken Unknown] Allergy/AdvReac Type Severity Reaction Status Date / Time lisinopril Allergy Other Verified 03/10/21 17:27 Family History (Updated 04/23/21 @ 13:[address] Vincenzo Salgado MD) Father Hypertension Surgical History Stented coronary artery Social History Smoking Status: Never smoker ROS ROS Narrative GENERAL: denies fever, chills, night sweats, HEENT: denies headache, sinus congestion, RESPIRATORY: denies cough, sputum production, CARDIAC: denies chest pain, palpitations, GASTROINTESTINAL: denies abdominal pain, GENITOURINARY: denies dysuria, urgency, frequency, EXTREMITY: denies swelling MUSCULOSKELETAL: Bilateral hip pain NEUROLOGIC: denies focal numbness, weakness, tingling HEMATOLOGIC: denies easy bruising and/or hemorrhage INTEGUMENT: denies rashes PSYCHIATRIC: denies suicidal or homicidal ideation Vital Signs Vital Signs Vital Signs: 04/23/21 06:38 Temperature 96.8 F L Temperature Source Temporal Pulse Rate 86 Respiratory Rate 18 Blood Pressure 142/90 H Blood Pressure Mean 107 Pulse Ox 96 Oxygen Delivery Method Room Air Weight Weight: 131.4 kg Body Mass Index (BMI) 41.5 Physical Exam Narrative GENERAL: cooperative HEENT: Atraumatic; EYES; Anicteric, Normal Conjunctiva NECK; supple, normal thyroid, RESPIRATORY: Diminished to auscultation CARDIOVASCULAR: Regular S1 S2, GI: soft, normoactive bowel sounds, : No Renal angle tenderness; EXTREMITIES: No edema, no clubbing, MUSCULOSKELETAL: no muscle waisting NEURO: Awake; no lateralizing signs. SKIN: No Rash PSYCH; Flat affect Results Lab / Micro Data Result Diagrams: 04/23/21 07:50 04/23/21 07:50 Labs: Laboratory Results - last 24 hr 04/23/21 07:50: WBC 6.8, RBC 4.40 L, Hgb 13.4, Hct 40.8, MCV 92.7, MCH 30.5, MCHC 32.8, RDW Std Deviation 47.6 H, RDW Coeff of [place] 14.0, Plt Count 146 L, MPV 10.3, Immature Gran % (Auto) 0.400, Neut % (Auto) 73.1 H, Lymph % (Auto) 16.5 L, [place] % (Auto) 7.1, Eos % (Auto) 2.5, Baso % (Auto) 0.4, Absolute Neuts (auto) 4.9, Absolute Lymphs (auto) 1.12, Nucleated RBC % 0 04/23/21 07:50: Sodium 141, Potassium 3.7, Chloride 106, Carbon Dioxide 31.0, Anion Gap 4 L, BUN 18, Creatinine 1.17, Estim Creat Clear Calc 52.86, Est GFR (MDRD) Af Amer 77, Est GFR (MDRD) Non-Af 64, BUN/Creatinine Ratio 15.4, Glucose 121 H, Calcium 8.2 L Micro: Microbiology 04/23/21 07:45 Nasal Secretion SARS-CoV-2 Antigen (Rapid) - Final Radiology Impression Hip/Pelvis X-Ray 04/23/21 07:13 IMPRESSION: Left hip arthrosis. Left sacroiliac arthrosis. Electronically Signed: Ochoa Benavides MD at 8:40 EST Tel , Service support , Assessment & Plan Assessment/Plan (1) Hip pain, right: (2) Weakness: PLAN: Patient is a 80-year-old gentleman presented with progressive generalized weakness and bilateral hip pain 1. Physical deconditioning with progressive lower extremity weakness and falls - Requested for PT OT eval and social media job titles to assist with discharge planning 2. Hypertension - Blood pressure controlled, home medications continued with dose adjustment as needed 3. Hypothyroidism - Patient is on levothyroxine home dose continued 4. Dyslipidemia -Patient is on statin therapy, continued at home dose 5. Coronary artery disease ?With previous history of CT 6. Class III obesity with BMI of 41.6 ?Weight loss advised 7. DVT prophylaxis ?Lovenox Advance planning; did discuss with the patient regarding advanced directives as well as CODE STATUS. Did explain the various scenarios involved ( FULL CODE, DNR CCA, DNR CCA with no intubation, and DNR CC and what each meant) patient elected to to remain full code with CPR and intubation if warranted. Order was placed. Time spent on discussion 18 minutes. Charges/Coding Visit Charges OBSV E&M: 28862 Initial observation care L3 Procedures Hospitalists Procedures: 54453 Advncd Care Plan 30 Min
[2021-04-23 15:37] VITALS: BP 115/89; PULSE 81; RESP 17; TEMP 36.8; O2SAT 97
--- NOTE | 2021-04-23 15:45 | CM.ED ---
Received call from [facility] with Admissions from [facility]. Per Nicol, patient has been medically cleared for admission to [facility] and will be submitting for insurance authorization.
[2021-04-23 17:44] VITALS: BP 115/69; PULSE 66; RESP 18; O2SAT 97
[2021-04-23 18:34] VITALS: BMI 40.1
[2021-04-23 18:51] VITALS: BP 126/88; PULSE 86; RESP 16; TEMP 36.6; O2SAT 94
[2021-04-23] MEDS: Acetaminophen 325 MG Tablet 650 MG PO (20:22)
[2021-04-23] MEDS: Carvedilol 12.5 MG Tablet PO (20:23)
[2021-04-23] MEDS: Atorvastatin Calcium 40 MG Tablet PO (20:23)
[2021-04-23 20:27] VITALS: BP 139/91; PULSE 74; RESP 18; TEMP 36.9; O2SAT 98
--- NOTE | 2021-04-23 21:34 | PCS.PANDOC ---
PANDEMIC DOCUMENTATION INITIATED: Date: 04/23/2021 Time: 5863
[2021-04-24 04:15] VITALS: BP 123/79; PULSE 68; RESP 18; TEMP 36.6; O2SAT 97
[2021-04-24 07:15] LABS: Absolute Neutrophil Count 4.6 X10^3/uL (2.0-7.7); Basophil# 0.03 X10^3/uL; Basophil% 0.4 % (0-1); Eosinophil# 0.15 X10^3/uL; Eosinophils% 2.2 % (0-5); Hematocrit 41.9 % (40-54); Hemoglobin 13.6 g/dL (13.0-16.5); Lymphocyte % 20.8 % (19-41); Mean Corp Hgb Conc 32.5 g/dL (32-36); Mean Corpuscular Volume 92.5 fL (80-94); Mean Platelet Vol. 10.6 fl (6.2-12.0); Monocyte# 0.49 X10^3/uL; Monocyte% 7.3 % (0-10); NRBC Flagged by Analyzer 0 % (0-5); Neutrophil # 4.62 X10^3/uL (2.7-7.7); Neutrophil % 68.9 % (47-70); Platelet Count 157 K/mm3 (150-450); RBC Distribution Width CV 13.9 % (11.6-14.6); RBC Distribution Width SD 47.3 fl (35.1-43.9); Red Blood Count 4.53 M/mm3 (4.6-6.2); White Blood Count 6.7 K/mm3 (4.4-11.0)
[2021-04-24] MEDS: Aspirin 81 MG TAB.CHEW PO (07:28)
[2021-04-24] MEDS: Losartan Potassium 100 MG Tablet PO (07:28)
[2021-04-24] MEDS: Carvedilol 12.5 MG Tablet PO (07:28)
[2021-04-24] MEDS: Enoxaparin 40 MG/0.4 ML Syringe SC (07:29)
[2021-04-24] MEDS: hydroCHLOROthiazide 25 MG Tablet PO (07:29)
--- NOTE | 2021-04-24 07:32 | PN.HOSP_ITS ---
Subjective Subjective Patient seen complaining of right groin pain. Awaiting insurance preset [facility] Objective Data Objective Data Vital Signs: Vital Signs Temp Pulse Resp BP Pulse Ox 97.9 F 68 18 123/79 H 97 04/24/21 04:15 04/24/21 04:15 04/24/21 04:15 04/24/21 04:15 04/24/21 04:15 Oxygen Delivery Method Room Air Weight: 127.006 kg Body Mass Index (BMI) 40.1 Intake & Output: Intake and Output for Last 24 Hours 04/22/21 04/23/21 04/24/21 23:59 23:59 23:59 Intake Total 480 / 480 Balance 480 / 480 Lab / Micro Data Result Diagrams: 04/24/21 06:15 04/24/21 06:15 Labs: Laboratory Results - last 24 hr 04/23/21 07:50: WBC 6.8, RBC 4.40 L, Hgb 13.4, Hct 40.8, MCV 92.7, MCH 30.5, MCHC 32.8, RDW Std Deviation 47.6 H, RDW Coeff of Devon 14.0, Plt Count 146 L, MPV 10.3, Immature Gran % (Auto) 0.400, Neut % (Auto) 73.1 H, Lymph % (Auto) 16.5 L, Banks % (Auto) 7.1, Eos % (Auto) 2.5, Baso % (Auto) 0.4, Absolute Neuts (auto) 4.9, Absolute Lymphs (auto) 1.12, Nucleated RBC % 0 04/23/21 07:50: Sodium 141, Potassium 3.7, Chloride 106, Carbon Dioxide 31.0, Anion Gap 4 L, BUN 18, Creatinine 1.17, Estim Creat Clear Calc 52.86, Est GFR (MDRD) Af Amer 77, Est GFR (MDRD) Non-Af 64, BUN/Creatinine Ratio 15.4, Glucose 121 H, Calcium 8.2 L 04/24/21 06:15: WBC 6.7, RBC 4.53 L, Hgb 13.6, Hct 41.9, MCV 92.5, MCH 30.0, MCHC 32.5, RDW Std Deviation 47.3 H, RDW Coeff of Devon 13.9, Plt Count 157, MPV 10.6, Immature Gran % (Auto) 0.400, Neut % (Auto) 68.9, Lymph % (Auto) 20.8, Banks % (Auto) 7.3, Eos % (Auto) 2.2, Baso % (Auto) 0.4, Absolute Neuts (auto) 4.6, Absolute Lymphs (auto) 1.40, Nucleated RBC % 0 Micro: Microbiology 04/23/21 07:45 Nasal Secretion SARS-CoV-2 Antigen (Rapid) - Final Radiography Diagnostic Testing: Radiology Impression Hip/Pelvis X-Ray 04/23/21 07:13 IMPRESSION: Left hip arthrosis. Left sacroiliac arthrosis. Electronically Signed: Ochoa Benavides MD at 8:40 EST Tel , Service support , Physical Exam Narrative GENERAL: cooperative HEENT: Atraumatic; EYES; Anicteric, Normal Conjunctiva NECK; supple, normal thyroid, RESPIRATORY: Diminished to auscultation CARDIOVASCULAR: Regular S1 S2, GI: soft, normoactive bowel sounds, : No Renal angle tenderness; EXTREMITIES: No edema, no clubbing, MUSCULOSKELETAL: no muscle waisting NEURO: Awake; no lateralizing signs. SKIN: No Rash PSYCH; Flat affect Assessment & Plan Assessment/Plan (1) Hip pain, right: (2) Weakness: PLAN: Patient is a 80-year-old gentleman presented with progressive generalized weakness and bilateral hip pain 1. Physical deconditioning with progressive lower extremity weakness and falls - Requested for PT OT eval and psychosocial rehabilitation counselor to assist with discharge planning 2. Hypertension - Blood pressure controlled, home medications continued with dose adjustment as needed 3. Hypothyroidism - Patient is on levothyroxine home dose continued 4. Dyslipidemia -Patient is on statin therapy, continued at home dose 5. Coronary artery disease ?With previous history of [place] 6. Class III obesity with BMI of 41.6 ?Weight loss advised 7. DVT prophylaxis ?Lovenox Charges/Coding Visit Charges OBSV E&M: 36488 Subsequent observation care L3
[2021-04-24 07:50] VITALS: BP 125/89; PULSE 71; RESP 16; TEMP 36.5; O2SAT 97
[2021-04-24 07:52] LABS: Anion Gap 6 (5-15); BUN 20 mg/dL (7-18); BUN/Creat Ratio 17.2 RATIO (10-20); Calcium,Total 8.5 mg/dL (8.5-10.1); Chloride 105 mmol/L (98-107); Creatinine, Serum 1.16 mg/dL (0.70-1.30); EST Glomerular Filtration Rate 64 mL/min (>60); Est Glom Filt Rate - Afr Amer 78 mL/min (>60); Estimated Creatinine Clearance 53.32 ml/min; Glucose 105 mg/dL (74-106); Magnesium 1.7 mg/dL (1.6-2.6); Phosphorus 3.2 mg/dL (2.5-4.9); Potassium 3.8 mmol/L (3.5-5.1); Sodium Level 142 mmol/L (136-145)
--- NOTE | 2021-04-24 09:27 | CASEMGMT ---
Addendum entered by Suzi Kohli 04/24/21 10:20: SW received message from [facility]ON stating pt is not service connected, so VA wouldn't pay for SNF. SW in to speak with pt. SW informed pt that he cannot go to SNF under VA but can go to SNF under his Medicare Part A. Pt asked about [facility] in [place]. SW informed pt that this worker can send referral to [facility] to inquire about bed availability. Pt states his preference would be [facility] as it is in [place] and closer to where he lives and where his son lives. SW informed pt that this worker will make the referral to [facility]. Pt states that he is frustrated with the VA and that the VA is stating they are not going to pay for SNF. SW explained that pt has to be service connected and this worker doesn't determine VA benefits and encouraged pt to call the VA to inquire about being service connected. Pt states well I might as well just drop then. SW spoke with pt about this comment. Pt states he was in pain yesterday and the pain was very intense. Per previous notes, Harsh WALKER did speak with pt regarding his comment last night and cleared pt for suicidal precautions. Pt states that pentecostalism plays an important part in his life and he has never missed a Friday going to [employer] in 22 years. Pt denied any current suicidal thoughts/plans/ideations. Pt states that he has a son named Kraig that lives local in [place]. Pt asked this worker to keep Kraig updated on where pt discharges to. 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 SW utilized active listening skills and provided support. AARON placed a call to Ewa at [facility] and provided referral. SW faxed referral to [facility]. Plan: [facility] pending acceptance Suzi ORDAZ, TRUCK DRIVER SUPERVISOR Original Note: Social Work Note [facility] message inquiring about pt's VA benefits. SW waiting for call back. Suzi ORDAZ, TRUCK DRIVER SUPERVISOR
--- NOTE | 2021-04-24 12:00 | CASEMGMT ---
AJIT SYKES in to discuss KEN form with patient. AJIT SYKES explained KEN form, patient voiced understanding. Pt signed form and filed in chart. Pt provided with a copy of signed KEN form. Pt also signed VA declination form and faxed to the [facility]. Patient had no further questions or concerns at this time.
--- NOTE | 2021-04-24 12:26 | DS.PCM_ITS ---
Providers Date of Admission: 04/23/21 Primary Care Physician: [facility] Reason For Visit: ADULT FAILURE TO THRIVE Diagnosis Discharge Diagnosis (1) Hip pain, right: Status: Acute Code(s): M25.551 - Pain in right hip (2) Weakness: Status: Acute Code(s): R53.1 - Weakness Medications at Discharge Home Medications acetaminophen [Tylenol 8 Hour] 650 mg PO Q8H PRN #20 tab 03/07/21 aspirin 81 mg PO DAILY 03/07/21 atorvastatin 40 mg PO QHS 03/07/21 carvedilol 12.5 mg PO BID 03/07/21 hydrochlorothiazide 25 mg PO DAILY 03/07/21 losartan 100 mg PO DAILY 03/07/21 prednisone 40 mg PO DAILY #8 tab 03/07/21 Synthroid 04/23/21 Hospital Course Summary of Care Provided Hospital Course: 1. Physical deconditioning with progressive lower extremity weakness and falls - Requested for PT OT eval and social service director to assist with discharge planning 2. Hypertension - Blood pressure controlled, home medications continued with dose adjustment as needed 3. Hypothyroidism - Patient is on levothyroxine home dose continued 4. Dyslipidemia -Patient is on statin therapy, continued at home dose 5. Coronary artery disease ?With previous history of [place] 6. Class III obesity with BMI of 41.6 ?Weight loss advised 7. DVT prophylaxis ?Lovenox Physical Exam Narrative GENERAL: cooperative HEENT: Atraumatic; EYES; Anicteric, Normal Conjunctiva NECK; supple, normal thyroid, RESPIRATORY: Diminished to auscultation CARDIOVASCULAR: Regular S1 S2, GI: soft, normoactive bowel sounds, : No Renal angle tenderness; EXTREMITIES: No edema, no clubbing, MUSCULOSKELETAL: no muscle waisting NEURO: Awake; no lateralizing signs. SKIN: No Rash PSYCH; Flat affect Weight / BMI Weight Weight: 127.006 kg Body Mass Index (BMI) 40.1 ABG / Lab / Microbiology Data Result Diagrams: 04/24/21 06:15 04/24/21 06:15 Laboratory: Laboratory Results - last 24 hr 04/24/21 06:15: WBC 6.7, RBC 4.53 L, Hgb 13.6, Hct 41.9, MCV 92.5, MCH 30.0, MCHC 32.5, RDW Std Deviation 47.3 H, RDW Coeff of Devon 13.9, Plt Count 157, MPV 10.6, Immature Gran % (Auto) 0.400, Neut % (Auto) 68.9, Lymph % (Auto) 20.8, [place] % (Auto) 7.3, Eos % (Auto) 2.2, Baso % (Auto) 0.4, Absolute Neuts (auto) 4.6, Absolute Lymphs (auto) 1.40, Nucleated RBC % 0 04/24/21 06:15: Sodium 142, Potassium 3.8, Chloride 105, Carbon Dioxide 31.0, Anion Gap 6, BUN 20 H, Creatinine 1.16, Estim Creat Clear Calc 53.32, Est GFR (MDRD) Af Amer 78, Est GFR (MDRD) Non-Af 64, BUN/Creatinine Ratio 17.2, Glucose 105, Calcium 8.5, Phosphorus 3.2, Magnesium 1.7 Microbiology: Microbiology 04/23/21 07:45 Nasal Secretion SARS-CoV-2 Antigen (Rapid) - Final D/C Instructions Discharge Diet: No restrictions Discharge Activity: Return to Normal Activity Call your doctor if you observe: Fever of 101 or Higher, Shortness of breath, Fainting spells and Chest pain Meaningful Use Info Meaningful Use Diagnoses (Choose all that apply): None applicable Discharge Plan Admission Admit Date/Time: 04/23/21 12:40 Attending Provider: Vincenzo Salgado Primary Care Provider: [facility] Discharge Orders/Prescriptions Prescriptions: Continued atorvastatin 40 mg Tablet 40 mg PO QHS RF: 0 carvedilol 12.5 mg Tablet 12.5 mg PO BID RF: 0 aspirin 81 mg Tablet 81 mg PO DAILY RF: 0 hydrochlorothiazide 25 mg Tablet 25 mg PO DAILY RF: 0 losartan 100 mg Tablet 100 mg PO DAILY RF: 0 prednisone 20 mg tablet 40 mg PO DAILY Qty: 8 RF: 0 acetaminophen [Tylenol 8 Hour] 650 mg tablet extended release 650 mg PO Q8H PRN (Reason: pain) Qty: 20 RF: 0 Synthroid RF: 0 [facility]errals [facility] [Primary Care Provider] - Disposition Disposition (needs filled in before D/C Order can be placed): Senior Care Facility Charges/Coding Visit Charges OBSV E&M: 00979 Observation care discharge
--- NOTE | 2021-04-24 12:30 | TREXTCAR_ITS ---
Diet 04/23/21 12:41 Diet: Regular - General Food consistency:: Regular Liquid Consistency:: Regular/Thin Therapies Physical Therapy: Eval and Treat Occupational Therapy: Eval and Treat Problem/Diagnosis (1) Hip pain, right: Status: Acute (2) Weakness: Status: Acute Allergies/Procedures Done in Hospital Allergies lisinopril Allergy (Verified 03/10/21 17:27) Other Type of Care/Length of Stay Estimated LOS: Convalescent Care Less Than 30 days Type of Care Needed: Skilled Rehab Potential: Good Prognosis: Good Additional Orders/Day of Discharge Day of Discharge: 04/24/21 Discharge Plan Admission Admit Date/Time: 04/23/21 12:40 Attending Provider: Vincenzo Salgado [place] Care [place] [place] Discharge Orders/Prescriptions Prescriptions: Continued atorvastatin 40 mg Tablet 40 mg PO QHS RF: 0 carvedilol 12.5 mg Tablet 12.5 mg PO BID RF: 0 aspirin 81 mg Tablet 81 mg PO DAILY RF: 0 hydrochlorothiazide 25 mg Tablet 25 mg PO DAILY RF: 0 losartan 100 mg Tablet 100 mg PO DAILY RF: 0 prednisone 20 mg tablet 40 mg PO DAILY Qty: 8 RF: 0 acetaminophen [Tylenol 8 Hour] 650 mg tablet extended release 650 mg PO Q8H PRN (Reason: pain) Qty: 20 RF: 0 Synthroid RF: 0 Referrals / Follow Up: [facility],[place] [Primary Care Provider] - Disposition Disposition (needs filled in before D/C Order can be placed): Senior Living Facility
[2021-04-24 13:26] VITALS: BP 133/90; PULSE 83; RESP 16; TEMP 36.3; O2SAT 97
--- NOTE | 2021-04-24 14:42 | CHAPLAIN ---
Type of Pastoral Visit _x__ Initial Visit ___ Follow-up Visit ___ On-call Visit ___ General Patient Visit ___ Spiritual Assessment ___ Family Conference ___ Bereavement ___ Rapid Response ___ Code Blue ___ Other (describe below) Pastoral Care Referral From _x__ Patient ___ Family ___ Nurse ___ Physician ___ Seafood Farmer ___ Supply Chain Buyer ___ Other (describe below) Sacrament/Intervention _x__ Active listening ___ Anointing ___ Nondenominational ___ Bereavement ___ Communion _x__ Umu exploration ___ _x__ Life review _x__ Prayer ___ Reconciliation ___ Sacrament of Sick _x__ Supportive presence ___ Wedding ___ Other (describe below) Pastoral Comments patient is very eager to talk, to discuss his health, to inform about his life and his umu; pt has stories; pt would like prayer for getting the plan for his future care; pt welcomes presence and prayer
--- NOTE | 2021-04-24 15:07 | CASEMGMT ---
Addendum entered by Suzi Kohli 04/24/21 15:55: [facility] had requested that this worker update her on pt's discharge plans. AARON placed a call to [facility] and left message that pt discharged to [facility] today. Original Note: Social Work Note SW received message from Ewa at [facility] stating they can accept pt today. SW updated physician. AARON faxed completed discharge paperwork to [facility] including transfer to extended care facility, signed medication list, any scripts, COVID tool/test, PAS/RR and PAS/RR results. Original in SNF folder and copy on pt's chart. AARON completed PAS/RR in HENS. Original in SNF folder and copy on pt's chart. AARON spoke with RN pt to transport via wheelchair van. SW accessed trip assist and arranged transportation via wheelchair van for 5:30pm. Transportation form completed and placed on SNF folder and copy on pt's chart. AARON updated RN on transportation time. SW in to speak with pt. SW updated pt that [facility] has accepted pt and he will discharge there today at 5:30pm. Pt states understanding, asked this wroker to call his son Kraig to update. SW placed a call to pt's son Kraig and updated him on discharge and transportation time to [facility] today. Kraig states understanding. AARON placed a call to Aurora Warren at [facility] to disregard referral. Plan: [facility] under PAS/RR with Physician's transporting pt via wheelchair van at 5:30pm Suzi Kohli DAY CARE ASSISTANT, GUEST SERVICE REPRESENTATIVE
== END 2021-04-24 18:30 | disposition skilled nursing facility (03) ==
LOC: ED 13:29 → MS3 15:48
PROVIDERS: Admitting Provider Internal Medicine; Emergency Provider Emergency Medicine; Visit Provider Internal Medicine
DX: M25.551 Pain in right hip (principal); R62.7 Adult failure to thrive; R53.1 Weakness; I10 Essential (primary) hypertension; E78.5 Hyperlipidemia, unspecified; E03.9 Hypothyroidism, unspecified; E66.01 Morbid (severe) obesity due to excess calories; I25.2 Old myocardial infarction; Z79.899 Other long term (current) drug therapy; Z79.82 Long term (current) use of aspirin; Z79.52 Long term (current) use of systemic steroids; Z79.890 Hormone replacement therapy; Z68.41 Body mass index [BMI] 40.0-44.9, adult
CPT/HCPCS: 36415; 73521; 80048; 83735; 84100; 85025; 87426; 96372; 97162; 97166; 99218; 99285; A4216; G0378

== ENCOUNTER 2021-05-17 03:47 | Inpatient (IN) | payer OTHER, SELFPAY ==
[2021-05-17] VITALS (21 sets, daily range): BP systolic 94–137; BP diastolic 52–99; PULSE 90–140; RESP 15–18; TEMP 35.9–36.7; O2SAT 93–100; BMI 39.5; BMI 37.8
--- NOTE | 2021-05-17 04:25 | EKG12_ITS ---
Test Reason : NAUSEA Blood Pressure : / mmHG Vent. Rate : 096 BPM Atrial Rate : 182 BPM P-R Int : 000 ms QRS Dur : 080 ms QT Int : 368 ms P-R-T Axes : 000 010 243 degrees QTc Int : 464 ms Atrial fibrillation Low voltage QRS Septal infarct , age undetermined T wave abnormality, consider anterolateral ischemia Abnormal ECG Confirmed by HEIDI BANG, PATO ([id number]), editor dictionary CARINA HICKEY ([id number]) on 05/22/2021 9:26:54 AM Referred By: JAMA Confirmed By:PATO GORDON MD
--- NOTE | 2021-05-17 04:25 | CT_ITS ---
STUDY: CT ABDOMEN AND PELVIS WITHOUT CONTRAST REASON FOR EXAM: Male, 80 years old. Pain RADIATION DOSAGE (If Supplied By Facility): CTDIvol = ( 24.15 ) mGy, DLP = ( 1333.23 ) mGycm TECHNIQUE: Transaxial images were obtained from the dome of the diaphragm to the symphysis pubis without oral contrast, and without intravenous contrast. Sagittal and coronal images were reconstructed. Individualized dose optimization techniques were used for this CT. COMPARISON: 04/08/2021 FINDINGS: Bilateral lung base atelectasis. Coronary artery calcifications. Normal liver. Normal gallbladder and extrahepatic biliary system. Normal spleen. Normal pancreas. Normal bilateral adrenal glands. Bilateral renal calculi redemonstrated without finding of obstructive uropathy. Normal visualized stomach. Distended small bowel with gas and fluid levels and a transition point in the neck of the small bowel containing umbilical hernia. There is also fluid in the hernia. No free air to suggest microperforation. All distal small bowel is decompressed. Normal colon. Sigmoid diverticulosis without finding of diverticulitis. The appendix is visualized and appears normal. Mildly calcific aorta. Normal inferior vena cava. Normal retroperitoneum. Decompressed urinary bladder. There are prostatic calcifications. Multiple healing left rib fractures redemonstrated. Lumbar scoliosis and extensive degenerative disease. CT/Abdomen/Pelvis without Cont IMPRESSION: Small bowel obstruction with transition point in the umbilical hernia neck. No free air. Bilateral lung base atelectasis. Electronically Signed: Chun Thorne MD at 5:21 EST Tel , Service support ,
--- NOTE | 2021-05-17 04:26 | EX.ED.DYSGE1 ---
HPI History of Present Illness Chief Complaint: Nausea/Vomiting Detail of Chief Complaint: Vomiting and abdominal pain that started yesterday about noon Informant: patient Narrative Narrative: Patient presents to the emergency department vomiting started yesterday around noon. He complains of abdominal pain. Patient states that he has an umbilical hernia that is been popped out for about a month and is painful. Patient denies any diarrhea. He denies any fevers. Denies cough. He denies significant shortness of breath. Patient does describe some chest discomfort. Prior similar symptoms: No PFSH PFSH Medical History (Updated 05/17/21 @ 06:[address] Johanna Valentino DO) Depression Hearing loss, left Hypertension Hypothyroidism Kidney stones Myocardial infarct Non-smoker TIA (transient ischemic attack) Home Medications acetaminophen [Tylenol 8 Hour] 650 mg PO Q8H PRN #20 tab 03/07/21 [Rx Last Taken Unknown] aspirin 81 mg PO DAILY 03/07/21 [History Last Taken Unknown] atorvastatin 40 mg PO QHS 03/07/21 [History Last Taken Unknown] carvedilol 12.5 mg PO BID 03/07/21 [History Last Taken Unknown] hydrochlorothiazide 25 mg PO DAILY 03/07/21 [History Last Taken Unknown] losartan 100 mg PO DAILY 03/07/21 [History Last Taken Unknown] prednisone 40 mg PO DAILY #8 tab 03/07/21 [Rx Last Taken Unknown] Synthroid 04/23/21 [History Last Taken Unknown] Allergy/AdvReac Type Severity Reaction Status Date / Time lisinopril Allergy Other Verified 05/17/21 03:54 Family History (Updated 04/23/21 @ 13:[address] Vincenzo Salgado MD) Father Hypertension Surgical History Stented coronary artery Social History Smoking Status: Never smoker ROS ROS ED Constitutional Constitutional ED: Reports systems reviewed and no addt'l complaints, except as documented; Denies body ache(s), change in weight or chills Eyes Eyes: Denies acute decrease in peripheral vision, change in vision, double vision or loss of vision ENT ENT ED: Reports none; Denies ear pain, lip swelling, loss taste/smell, neck pain, otalgia or sore throat Cardiovascular Cardiovascular: Reports none and chest pain; Denies abdominal pain, chest pain with activity, leg edema, lightheadedness, palpitations, rapid heart rate or syncope Respiratory/Chest Respiratory/Chest: Reports none; Denies change in mental status, dry cough, dyspnea, hemoptysis, shortness of breath at rest or shortness of breath with exertion Gastrointestinal Gastrointestinal: Reports none, abdominal pain, nausea and vomiting; Denies change in stool character, diarrhea, hematemesis, hematochezia, melena or rectal bleeding Genitourinary Genitourinary ED: Reports none; Denies abdominal discomfort, anuria, dysuria, genital pain or polyuria Musculoskeletal Musculoskeletal: Reports none; Denies arthralgias, back pain, difficulty walking, extremity pain, muscle weakness or myalgias Integumentary Reports none; Denies abscess or rash Neurologic Neurologic: Reports none; Denies abnormal gait, confusion, focal weakness, frequent falls, headache(s), loss of vision, numbness, paresthesias, radicular pain, vertigo or weakness Psychiatric Psychiatric: Reports systems reviewed and no addt'l complaints, except as documented and none; Denies behavioral changes, confusion, difficulty concentrating, hallucinations, suicidal ideation, tactile hallucinations or visual hallucinations Endocrine Endocrinology: Denies none, cold intolerance, excessive sweating, fatigue or heat intolerance Hematologic/Lymphatic Hematologic/Lymphatic: Reports none; Denies anemia, easy bleeding or easy bruising Allergic/Immunologic Allergic/Immunologic ED: Denies as per HPI, none, lip swelling, mouth swelling, throat swelling, tongue swelling or hives EXAM Physical Exam Const Vital Signs: 05/17/21 03:48 05/17/21 06:00 Temperature 96.6 F L Temperature Source Temporal Pulse Rate 113 H 90 Respiratory Rate 18 15 Blood Pressure 122/99 H 137/89 H Blood Pressure Mean 106 105 Pulse Ox 95 97 Oxygen Delivery Method Room Air Nasal Cannula Oxygen Flow Rate (L/min) 2 Positive well nourished and well developed General Appearance ED: well developed and NAD HEENT Reports TM's clear and moist mucous membranes normocephalic and atraumatic; Negative for trauma or tenderness Tympanic Membrane ED: Yes TM's clear Eyes PERRL and EOMs intact bilaterally General Eye ED: Negative for pale conjunctiva or scleral icterus Neck no lymphadenopathy, supple and no JVD General: Negative for tenderness Chest Wall inspection of chest normal and palpation of chest normal Chest: Negative for tenderness Resp normal respiratory effort and clear to auscultation bilaterally Effort and Inspection: Negative for respiratory distress or pain with movement Auscultation: Negative for rhonchi, wheezes or diminished lung sounds Cardio regular rate, regular rhythm, S1 normal heart sound, S2 normal heart sound and no murmurs Peripheral Pulses: pulses 2+ throughout GI soft to palpation, non-distended and no masses GI Narrative: Patient has tenderness palpation diffusely over the anterior and upper abdomen. He does have an umbilical hernia that is tender to palpation. Patient has guarding. There is no rebound or rigidity. Back/Spine no CVA tenderness and no thoracic nor lumbar tenderness Extremity normal to inspection General Extremety ED: Negative for edema General Extremity: Negative for edema Neuro oriented x3, CN's II-XII intact bilaterally, no sensory deficits noted and gait normal Sensorium / Orientation: awake, alert, oriented to person, oriented to place and oriented to time Motor Exam: strength 5/5 throughout and strength abnormal Psych mental status grossly normal Skin no rashes or lesions noted and no wounds MDM MDM MDM Narrative Medical decision making narrative: IV line established on arrival. Patient was medicated with Zofran. He was noted to have a bowel obstruction on CT with transition point in the umbilical hernia. Case was discussed with general surgeon Dr. Navjot Kendrick who presented to the emergency department to see the patient. Dr. Kendrick was able to reduce the hernia. I initially attempted to reduce the hernia on patient's arrival unsuccessfully. Patient will be admitted by surgeon for suspected surgical intervention to evaluate the bowel later this afternoon. Lab Data Attestation: I reviewed the patient's lab results. Labs: Laboratory Results - last 24 hr 05/17/21 05/17/21 05/17/21 04:35 04:35 04:35 WBC 14.8 H RBC 5.01 Hgb 15.3 Hct 46.3 MCV 92.4 MCH 30.5 MCHC 33.0 RDW Std Deviation 48.8 H RDW Coeff of Devon 14.5 Plt Count 163 MPV 11.9 Immature Gran % (Auto) 0.500 Neut % (Auto) 90.7 H Lymph % (Auto) 2.9 L Rice % (Auto) 5.6 Eos % (Auto) 0.2 Baso % (Auto) 0.1 Absolute Neuts (auto) 13.4 H Absolute Lymphs (auto) 0.43 L Nucleated RBC % 0 Differential Comment SCANNED Sodium 144 Potassium 3.5 Chloride 102 Carbon Dioxide 30.0 Anion Gap 12 BUN 27 H Creatinine 1.50 H Estim Creat Clear Calc 41.23 Est GFR (MDRD) Af Amer 58 L Est GFR (MDRD) Non-Af 48 L BUN/Creatinine Ratio 18.0 Glucose 160 H Lactic Acid 1.6 Calcium 8.3 L Total Bilirubin 1.60 H AST 20 ALT 37 Alkaline Phosphatase 96 Troponin I High Sens 8 Total Protein 7.1 Albumin 3.2 Globulin 3.9 Albumin/Globulin Ratio 0.8 L Lipase 101 Radiography Diagnostic Testing: Clinical Impression(s) from Imaging Studies Abdomen/Pelvis CT 05/17/21 04:25 IMPRESSION: Small bowel obstruction with transition point in the umbilical hernia neck. No free air. Bilateral lung base atelectasis. Electronically Signed: Chun Thorne MD at 5:21 EST Tel , Service support , EKG Initial EKG: Attestation: I personally reviewed and interpreted this EKG as follows: Comments: Atrial fibrillation with nonspecific ST changes with a ventricular rate of 96 bpm Discharge Plan Triage Chief Complaint: Nausea/Vomiting ED Provider: Johanna Valentino Dx/Rx/DC Orders Clinical Impression: Incarcerated umbilical hernia, Small bowel obstruction [facility]position[facility] Hospital [facility]
[2021-05-17] MEDS: 0.9% Normal Saline 1,000 ML 125 ML IV ×2 (04:37→18:58)
[2021-05-17] MEDS: Ondansetron 4 MG/2 ML Vial IV (04:38)
[2021-05-17 04:45] LABS: Absolute Lymphocyte Count 0.43 X10^3/uL (0.83-4.51); Absolute Neutrophil Count 13.4 X10^3/uL (2.0-7.7); Basophil# 0.02 X10^3/uL; Basophil% 0.1 % (0-1); Eosinophil# 0.03 X10^3/uL; Eosinophils% 0.2 % (0-5); Hematocrit 46.3 % (40-54); Hemoglobin 15.3 g/dL (13.0-16.5); Lymphocyte # 0.43 X10^3/ul (0.83-4.51); Lymphocyte % 2.9 % (19-41); Mean Corpuscular Hgb 30.5 pg (27.0-32.0); Mean Corpuscular Volume 92.4 fL (80-94); Mean Platelet Vol. 11.9 fl (6.2-12.0); Monocyte# 0.82 X10^3/uL; Monocyte% 5.6 % (0-10); NRBC Flagged by Analyzer 0 % (0-5); Neutrophil # 13.39 X10^3/uL (2.7-7.7); Neutrophil % 90.7 % (47-70); POSITIVE DIFFERENTIAL YES; Platelet Count 163 K/mm3 (150-450); RBC Distribution Width CV 14.5 % (11.6-14.6); RBC Distribution Width SD 48.8 fl (35.1-43.9); Red Blood Count 5.01 M/mm3 (4.6-6.2); White Blood Count 14.8 K/mm3 (4.4-11.0)
[2021-05-17 04:46] LABS: Differential Indicated SCAN CRITERIA MET
[2021-05-17 05:05] LABS: Differential Comment SCANNED
[2021-05-17 05:12] LABS: ALB/GLOB Ratio 0.8 RATIO (0.9-2.4); AST(SGOT) 20 U/L (15-37); Alanine Aminotransfer ALT/SGPT 37 U/L (16-61); Albumin, Serum 3.2 g/dL (3.2-5.0); Alkaline Phosphatase 96 U/L (45-117); Anion Gap 12 (5-15); BUN 27 mg/dL (7-18); Calcium,Total 8.3 mg/dL (8.5-10.1); Chloride 102 mmol/L (98-107); EST Glomerular Filtration Rate 48 mL/min (>60); Est Glom Filt Rate - Afr Amer 58 mL/min (>60); Estimated Creatinine Clearance 41.23 ml/min; Globulin 3.9 g/dL (2.2-4.2); Glucose 160 mg/dL (74-106); Lipase 101 U/L (73-393); Potassium 3.5 mmol/L (3.5-5.1); Protein, Total 7.1 g/dL (6.4-8.2); Sodium Level 144 mmol/L (136-145); Troponin-I HS 8 pg/mL (3.0-78.0)
[2021-05-17 05:13] LABS: Lactic Acid 1.6 mmol/L (0.4-1.9)
--- NOTE | 2021-05-17 06:31 | HP.PCM_ITS ---
HPI - General HPI Narrative ELVIN HOPEPR, is a 80 M who presents to [facility] with a 18- hour history of abdominal pain, nausea and vomiting. He states this is his second such presentation in a matter of a few months. He has a known umbilical hernia, but has never sought repair. He is somewhat confused this morning, but relates a history of recent discharge from a rehab facility for his knees and has been struggling to care for himself at home. He states yesterday he began with abdominal pain at approximately 12 PM. This pain was associated with a number of vomiting episodes. On presentation to the ER, his laboratories remarkable for a mild leukocytosis of 14,000. Significantly lactate is within normal limits. CT imaging showed evidence of a small bowel obstruction with a transition point in the hernia. Patient has a history of acute IA and is status post PCI in 2012. He otherwise has not required surgery. [facility] Medical History (Updated 05/17/21 @ 06:[address] Johanna Valentino, DO) Depression Hearing loss, left Hypertension Hypothyroidism Kidney stones Myocardial infarct Non-smoker TIA (transient ischemic attack) Home Medications acetaminophen [Tylenol 8 Hour] 650 mg PO Q8H PRN #20 tab 03/07/21 [Rx Last Taken Unknown] aspirin 81 mg PO DAILY 03/07/21 [History Last Taken Unknown] atorvastatin 40 mg PO QHS 03/07/21 [History Last Taken Unknown] carvedilol 12.5 mg PO BID 03/07/21 [History Last Taken Unknown] hydrochlorothiazide 25 mg PO DAILY 03/07/21 [History Last Taken Unknown] losartan 100 mg PO DAILY 03/07/21 [History Last Taken Unknown] prednisone 40 mg PO DAILY #8 tab 03/07/21 [Rx Last Taken Unknown] Synthroid 04/23/21 [History Last Taken Unknown] Allergy/AdvReac Type Severity Reaction Status Date / Time lisinopril Allergy Other Verified 05/17/21 03:54 Family History (Updated 04/23/21 @ 13:[address] Vincenzo Salgado MD) Father Hypertension Surgical History Stented coronary artery Social History Smoking Status: Never smoker Vital Signs Vital Signs Vital Signs: 05/17/21 03:48 05/17/21 06:00 Temperature 96.6 F L Temperature Source Temporal Pulse Rate 113 H 90 Respiratory Rate 18 15 Blood Pressure 122/99 H 137/89 H Blood Pressure Mean 106 105 Pulse Ox 95 97 Oxygen Delivery Method Room Air Nasal Cannula Oxygen Flow Rate (L/min) 2 Weight Weight: 275 lb 9.245 oz Body Mass Index (BMI) 39.5 Physical Exam Const alert Constitutional Narrative: Mild distress from abdominal discomfort Resp normal respiratory effort Cardio regular rate GI GI Narrative: Morbidly obese, mildly distended. Soft and nontender to palpation x4 abdominal quadrants. However, there is some distention of the stretch skin over his umbilicus with mild purple color. The hernia is soft and only mildly tender with palpation. It was reduced with gentle traction the top of the bowel. Patient has some ongoing mild tenderness but overall is much improved. Results Lab / Micro Data Result Diagrams: 05/17/21 04:35 05/17/21 04:35 Labs: Laboratory Results - last 24 hr 05/17/21 04:35: WBC 14.8 H, RBC 5.01, Hgb 15.3, Hct 46.3, MCV 92.4, MCH 30.5, MCHC 33.0, RDW Std Deviation 48.8 H, RDW Coeff of Devon 14.5, Plt Count 163, MPV 11.9, Immature Gran % (Auto) 0.500, Neut % (Auto) 90.7 H, Lymph % (Auto) 2.9 L, Christian % (Auto) 5.6, Eos % (Auto) 0.2, Baso % (Auto) 0.1, Absolute Neuts (auto) 13.4 H, Absolute Lymphs (auto) 0.43 L, Nucleated RBC % 0, Differential Comment SCANNED 05/17/21 04:35: Sodium 144, Potassium 3.5, Chloride 102, Carbon Dioxide 30.0, Anion Gap 12, BUN 27 H, Creatinine 1.50 H, Estim Creat Clear Calc 41.23, Est GFR (MDRD) Af Amer 58 L, Est GFR (MDRD) Non-Af 48 L, BUN/Creatinine Ratio 18.0, Glucose 160 H, Calcium 8.3 L, Total Bilirubin 1.60 H, AST 20, ALT 37, Alkaline Phosphatase 96, Troponin I High Sens 8, Total Protein 7.1, Albumin 3.2, Globulin 3.9, Albumin/Globulin Ratio 0.8 L, Lipase 101 05/17/21 04:35: Lactic Acid 1.6 Radiology Impression Abdomen/Pelvis CT 05/17/21 04:25 IMPRESSION: Small bowel obstruction with transition point in the umbilical hernia neck. No free air. Bilateral lung base atelectasis. Electronically Signed: Chun Thorne MD at 5:21 EST Tel , Service support , Assessment & Plan Assessment/Plan (1) Incarcerated umbilical hernia: PLAN: Patient with small bowel incarcerated umbilical hernia. This was able to be reduced at bedside after confirming a normal lactate and soft hernia contents. Still, this is the patient's second such presentation and with his leukocytosis, I would like to perform a diagnostic laparoscopy at the time of a umbilical hernia repair later today. As long as the bowel is viable, I plan to perform a mesh repair. The above has been discussed with both patient and his son who are in agreement. Patient also requests case management evaluation given the difficulties he is having at home. (2) Small bowel obstruction: PLAN: Patient with small bowel obstruction and transition point in the hernia mentioned above. Now that is reduced, patient's nausea symptoms are improved. Still I will keep him n.p.o. In anticipation of surgery. Will await spontaneous return of bowel function maintain with IV fluid support. Charges/Coding Visit Charges Inpatient E&M: 66098 Init Hosp L2
--- NOTE | 2021-05-17 09:34 | NURSING ---
Patient unaware of medication doses, son unable to provide list as well. Will call PCP at [facility] to obtain a med list
--- NOTE | 2021-05-17 13:42 | CASEMGMT ---
AJIT SYKES received call from Olaf at [facility] that they were getting ready to open patient for SN, PT/OT. AJIT SYKES will place green sheet on chart for discharge home with [facility].
--- NOTE | 2021-05-17 14:30 | HERN_PTH ---
PATIENT: ELVIN HOPPER LOC: MS2 U#:[id number] AGE/SX: 80/M ROOM: [facility] RE05/18/[address]: Dr. Navjot Kendrick MD : 1940 BED: 1 DIS: 05/21/2021 SPEC #: [id number] RECD: 05/21/21 11:13 STATUS: REJI GISELA #: [id number] SHADIA: 05/17/21 14:[address]: Navjot Kendrick DEPT: SURGICAL PATHOLOGY RECD BY: Sue Francois ENTERED: 05/21/21 11:27 SP TYPE: Hernia OTHR DR: [facility] Tissues: HERNIA Procedures: Surgery Specimen Level III HEADER OPERATION: Umbilical hernia repair PRE-OP DIAGNOSIS: Incarcerated umbilical hernia, small bowel obstruction TISSUE SUBMITTED: Hernia sac and omentum MICROSCOPIC DIAGNOSIS Hernia sac and omentum: Pieces of adipose tissue, consistent with hernia sac and omentum with focal fat necrosis and extensive congestion and hemorrhage. SJ:eliza 05/22/2021 MICROSCOPIC DESCRIPTION Slides are reviewed. GROSS DESCRIPTION Received in fixative is one container labeled with the patient's name and designated hernia sac. The specimen consists of multiple irregular fragments of light loja soft tissue that in aggregate measure 20 x 6 x 2 cm. No mass lesion is identified. Sections reveal congested cut surfaces. Computer Operations Manager sections are submitted in two cassettes. / SHAINA:eliza 05/21/21 TC:5 CPT: 68011
--- NOTE | 2021-05-17 14:39 | CHAPLAIN ---
Type of Pastoral Visit ___ Initial Visit ___ Follow-up Visit ___ On-call Visit ___ General Patient Visit ___ Spiritual Assessment ___ Family Conference ___ Bereavement ___ Rapid Response ___ Code Blue _x__ Other (describe below) Pastoral Care Referral From _x__ Patient ___ Family ___ Nurse ___ Physician ___ Development Writer ___ Pin Drafting Machine Tender ___ Other (describe below) Sacrament/Intervention ___ Active listening ___ Anointing ___ Sabianist ___ Bereavement ___ Communion ___ Umu exploration ___ ___ Life review ___ Prayer ___ Reconciliation ___ Sacrament of Sick ___ Supportive presence ___ Wedding _x__ Other (describe below) Pastoral Comments patient is being taken out of room for a procedure at this time
[2021-05-17] MEDS: Bupivacaine Mpf 0.5% 30 ML VIAL (17:03)
--- NOTE | 2021-05-17 17:19 | PCM.OPRPT ---
Report of Operation Date of Procedure: 05/17/21 Pre-Operative Diagnosis: 1. Incarcerated umbilical hernia 2. Small bowel obstruction Post-Operative Diagnosis: Same Surgery/Procedure Performed:: 1. Exploratory laparotomy 2. Repair of serosal defect to small bowel 3. Partial omentectomy of infarcted omentum and excision of hernia sac 4. Repair of umbilical hernia Description of Surgical Findings:: ?Infarcted omentum and purpling of the hernia sac without bowel ?Small bowel with mild congestion of the mesentery but viable pink Surgeon: Navjot Kendrick hospital insurance representative: Janette Loza hospital insurance representative: Bi Rajput Type of Anesthesia: General/Supplemental Anesthesiologist: Vishnu Tejada Specimen's removed: Hernia sac and infarcted omentum Estimated Blood Loss (mL): 150 Description of Procedure: After appropriate identification in the preoperative holding area and confirming consents, patient was brought to the operating room. Preoperative antibiotics were completed and patient was positioned supine on the operating room table. He was induced with general anesthetic and his abdomen was clipped of hair. He was then prepped and draped in the usual sterile fashion. Formal timeout was conducted to confirm both patient and procedure. I began the procedure with a local block of half percent Marcaine around the umbilicus. Then a curvilinear, infraumbilical incision was made. Dissection was carried down to the level of the fascia. Then I bluntly encircled the umbilical stalk and the overlying skin. It quickly became apparent that there was a purpling of the hernia sac with old blood within it. I bisected the hernia sac with care using electrocautery. Then 5 attempted to deliver the hernia contents through the opening. Unfortunately, there was dense adhesions between these contents in the anterior abdominal wall which are partially disrupted with finger fracture in a circumferential fashion about the fascial opening. I attempted to improve the situation by opening the fascia several centimeters in the cephalad and caudad directions. Still, there was no movement of these contents with traction so I extended a laparotomy incision approximately 6 cm inferiorly. I then proceeded with more blunt and sharp adhesiolysis. This ultimately led to some stripping of the peritoneum, but I was able to ascertain that the hernia contents were solely omentum and the most distal portion of this had become infarcted with thrombosed vessels. Therefore the hernia sac was amputated with electrocautery and a Vicryl ligature was placed around the infarcted omentum and it too was amputated and sent for specimen. I then identified the small bowel at the superior portion of the wound and began running the small bowel. Ultimately, I came up on the proximal extent at the ligament of Treitz which appeared normal. As I moved distally, I encountered a knuckling of small bowel with some caking of the mesentery, and a minute serosal defect. The bowel was pink in color, and as it was observed, there was peristalsis. Therefore the serosal area was imbricated with interrupted Limbert sutures using 3-0 silk and the bowel was returned to the peritoneum. I attempted to find some omentum to cover this opening, however, none was easily pulled into the window and I feared causing more bleeding. Therefore, I aborted this task and began closure of the peritoneum. This was accomplished with 2X double-stranded 0 PDS. Given our created subcutaneous space and unorthodox suture line, I used a 2-0 silk to perform a number of interrupted deep dermal stitches to both close down the space and approximate the skin layer. The umbilical skin was also tacked down to the fascia with this stitch. A running 4-0 Monocryl was used to close first the initial curvilinear incision followed the inferior extent laparotomy incision in a subcuticular technique. Steri-Strips and OpSite's were applied as dressings. The patient was placed in an abdominal binder for added support. Patient was extubated without event and taken to PACU for ongoing recovery. Complications None Admit VTE Documentation VTE Present on Admission: No VTE Mechan Device Prophylaxis: SCD's VTE Pharm Prophylaxis ordered?: No Procedures Digestive 40xxx-49xxx: 90441 XLap, Exploration of abdomen
[2021-05-17] MEDS: HYDROmorphone 0.5 MG/0.5 ML SYRINGE IV (23:08)
[2021-05-18] VITALS (16 sets, daily range): BP systolic 92–121; BP diastolic 55–76; PULSE 100–140; RESP 16–18; TEMP 36.7–37.1; O2SAT 90–99
[2021-05-18] MEDS: Metoprolol Tartrate 5 MG/5 ML Vial IV (02:04)
[2021-05-18] MEDS: 0.9% Normal Saline 1,000 ML 125 ML IV ×4 (02:09→23:05)
[2021-05-18] MEDS: HYDROmorphone 0.5 MG/0.5 ML SYRINGE IV ×2 (05:18→15:41)
[2021-05-18 06:35] LABS: Absolute Neutrophil Count 7.7 X10^3/uL (2.0-7.7); Basophil# 0.02 X10^3/uL; Basophil% 0.2 % (0-1); Eosinophil# 0.03 X10^3/uL; Eosinophils% 0.3 % (0-5); Hemoglobin 13.4 g/dL (13.0-16.5); Lymphocyte % 6.3 % (19-41); Mean Corp Hgb Conc 31.9 g/dL (32-36); Mean Corpuscular Hgb 30.4 pg (27.0-32.0); Mean Corpuscular Volume 95.2 fL (80-94); Mean Platelet Vol. 11.3 fl (6.2-12.0); Monocyte# 1.05 X10^3/uL; Monocyte% 11.1 % (0-10); NRBC Flagged by Analyzer 0 % (0-5); Neutrophil % 81.5 % (47-70); POSITIVE DIFFERENTIAL YES; Platelet Count 146 K/mm3 (150-450); RBC Distribution Width CV 14.9 % (11.6-14.6); RBC Distribution Width SD 52.3 fl (35.1-43.9); Red Blood Count 4.41 M/mm3 (4.6-6.2); White Blood Count 9.5 K/mm3 (4.4-11.0)
[2021-05-18 06:41] LABS: Differential Indicated SCAN CRITERIA MET
[2021-05-18 06:53] LABS: Differential Comment SCANNED
[2021-05-18 07:06] LABS: Anion Gap 6 (5-15); BUN 33 mg/dL (7-18); BUN/Creat Ratio 17.3 RATIO (10-20); Chloride 110 mmol/L (98-107); Creatinine, Serum 1.91 mg/dL (0.70-1.30); EST Glomerular Filtration Rate 36 mL/min (>60); Est Glom Filt Rate - Afr Amer 44 mL/min (>60); Estimated Creatinine Clearance 32.38 ml/min; Glucose 142 mg/dL (74-106); Potassium 3.7 mmol/L (3.5-5.1); Sodium Level 145 mmol/L (136-145)
--- NOTE | 2021-05-18 07:53 | PCM.PN.SRG ---
Subjective Subjective Patient has not urinated since surgery. Patient reports some abdominal pain. No nausea or vomiting. Objective Data Objective Data Vital Signs: Vital Signs Temp Pulse Resp BP Pulse Ox 98.2 F 124 H 16 107/68 94 05/18/21 03:49 05/18/21 07:29 05/18/21 03:49 05/18/21 03:49 05/18/21 03:49 Oxygen Flow Rate (L/min) 2 Oxygen Delivery Method Room Air Weight: 263 lb 14.293 oz Body Mass Index (BMI) 37.8 Intake & Output: Intake and Output for Last 24 Hours 05/16/21 05/17/21 05/18/21 23:59 23:59 23:59 Intake Total 1115 / 1115 1949. / 1949. Output Total 0 / 0 Balance 1115 / 1115 1949. / Lab / Micro Data Result Diagrams: 05/18/21 06:25 05/18/21 06:25 Labs: Laboratory Results - last 24 hr 05/18/21 06:25: WBC 9.5, RBC 4.41 L, Hgb 13.4, Hct 42.0, MCV 95.2 H, MCH 30.4, MCHC 31.9 L, RDW Std Deviation 52.3 H, RDW Coeff of Devon 14.9 H, Plt Count 146 L, MPV 11.3, Immature Gran % (Auto) 0.600, Neut % (Auto) 81.5 H, Lymph % (Auto) 6.3 L, Tillman % (Auto) 11.1 H, Eos % (Auto) 0.3, Baso % (Auto) 0.2, Absolute Neuts (auto) 7.7, Absolute Lymphs (auto) 0.60 L, Nucleated RBC % 0, Differential Comment SCANNED 05/18/21 06:25: Sodium 145, Potassium 3.7, Chloride 110 H, Carbon Dioxide 29.0, Anion Gap 6, BUN 33 H, Creatinine 1.91 H, Estim Creat Clear Calc 32.38, Est GFR (MDRD) Af Amer 44 L, Est GFR (MDRD) Non-Af 36 L, BUN/Creatinine Ratio 17.3, Glucose 142 H, Calcium 7.0 L Micro: Microbiology 05/17/21 09:55 Nasal Secretion SARS-CoV-2 Antigen (Rapid) - Final Physical Exam Const no apparent distress Resp normal respiratory effort Cardio Rate: tachycardic GI soft to palpation Palpation: tender Assessment & Plan Assessment/Plan (1) Incarcerated umbilical hernia: PLAN: Patient underwent surgery yesterday afternoon for incarcerated umbilical hernia. There was no bowel resection. Patient does not note any flatus. The patient's creatinine has increased and he has not had a urination since surgery. He was given a bolus due to tachycardia overnight I will give him another bolus this morning and if there is no urine output I will place a Wright for urine output monitoring. Patient has A. fib but I am unsure if he has A. fib RVR or if he is tachycardic due to dehydration. His rising creatinine would suggest that he is dry. Continue n.p.o. until patient starts having bowel function. Js Colvin MD Pager: [facility] [address] [place] [address], [address] [place] [address] Office:
[2021-05-18] MEDS: Lidocaine Jelly 2% 20 ML Syringe (URO-JET) 20 APPLIC TOPICAL (12:16)
[2021-05-18] MEDS: 0.9% Saline Lock 10 ML Syringe IV (15:47)
[2021-05-18] MEDS: Carvedilol 12.5 MG Tablet PO (23:05)
[2021-05-18] MEDS: hydroCHLOROthiazide 25 MG Tablet PO (23:05)
[2021-05-19] VITALS (9 sets, daily range): BP systolic 128–146; BP diastolic 72–95; PULSE 82–108; RESP 16–18; TEMP 36.4–36.9; O2SAT 95–97
[2021-05-19] MEDS: Ondansetron 4 MG/2 ML Vial IV ×2 (01:41→12:42)
[2021-05-19] MEDS: HYDROmorphone 0.5 MG/0.5 ML SYRINGE IV (01:41)
[2021-05-19] MEDS: 0.9% Saline Lock 10 ML Syringe IV ×2 (01:41→12:42)
--- NOTE | 2021-05-19 01:49 | NURSING ---
encouraged pt to change positions, go to chair or walk for complaints of abdominal gas pressure, pt refused states you dont know what your talking about lady medicated for nausea & pain. denies further needs
--- NOTE | 2021-05-19 01:53 | PCS.PANDOC ---
PANDEMIC DOCUMENTATION INITIATED: Date: 05/17/2021 Time:
[2021-05-19 05:25] LABS: Absolute Lymphocyte Count 0.49 X10^3/uL (0.83-4.51); Absolute Neutrophil Count 7.6 X10^3/uL (2.0-7.7); Basophil# 0.02 X10^3/uL; Basophil% 0.2 % (0-1); Eosinophil# 0.02 X10^3/uL; Eosinophils% 0.2 % (0-5); Hematocrit 41.2 % (40-54); Hemoglobin 12.9 g/dL (13.0-16.5); Lymphocyte # 0.49 X10^3/ul (0.83-4.51); Lymphocyte % 5.5 % (19-41); Mean Corp Hgb Conc 31.3 g/dL (32-36); Mean Corpuscular Hgb 30.4 pg (27.0-32.0); Mean Corpuscular Volume 96.9 fL (80-94); Mean Platelet Vol. 11.9 fl (6.2-12.0); Monocyte# 0.76 X10^3/uL; Monocyte% 8.5 % (0-10); NRBC Flagged by Analyzer 0 % (0-5); Neutrophil # 7.56 X10^3/uL (2.7-7.7); Neutrophil % 84.8 % (47-70); POSITIVE DIFFERENTIAL YES; Platelet Count 135 K/mm3 (150-450); RBC Distribution Width CV 15.3 % (11.6-14.6); Red Blood Count 4.25 M/mm3 (4.6-6.2); White Blood Count 8.9 K/mm3 (4.4-11.0)
[2021-05-19 05:30] LABS: Differential Indicated SCAN CRITERIA MET
[2021-05-19 05:52] LABS: Anion Gap 7 (5-15); BUN 32 mg/dL (7-18); BUN/Creat Ratio 23.4 RATIO (10-20); Calcium,Total 6.9 mg/dL (8.5-10.1); Chloride 112 mmol/L (98-107); Creatinine, Serum 1.37 mg/dL (0.70-1.30); EST Glomerular Filtration Rate 53 mL/min (>60); Est Glom Filt Rate - Afr Amer 64 mL/min (>60); Estimated Creatinine Clearance 45.14 ml/min; Glucose 130 mg/dL (74-106); Potassium 3.6 mmol/L (3.5-5.1); Sodium Level 147 mmol/L (136-145)
[2021-05-19 06:00] LABS: Differential Comment SCANNED
[2021-05-19] MEDS: 0.9% Normal Saline 1,000 ML 125 ML IV ×3 (06:02→21:02)
[2021-05-19] MEDS: Acetaminophen 325 MG Tablet 650 MG PO ×3 (07:54→21:09)
--- NOTE | 2021-05-19 08:16 | PCM.PN.SRG ---
Subjective Subjective The patient still having some abdominal pain but is passing flatus. I started him on clears yesterday evening. Objective Data Objective Data Vital Signs: Vital Signs Temp Pulse Resp BP Pulse Ox 98.4 F 103 H 16 128/72 H 95 05/19/21 01:48 05/19/21 07:39 05/19/21 01:48 05/19/21 01:48 05/19/21 01:48 Oxygen Flow Rate (L/min) 2 Oxygen Delivery Method Nasal Cannula Weight: 263 lb 14.293 oz Body Mass Index (BMI) 37.8 Intake & Output: Intake and Output for Last 24 Hours 05/17/21 05/18/21 05/19/21 23:59 23:59 23:59 Intake Total 1115 / 1115 4524.17 / 4524.17 1288.75 / 1288.75 Output Total 775 / 775 300 / 300 Balance 1115 / 1115 3749.17 / 3749.17 988.75 / 988.75 Lab / Micro Data Result Diagrams: 05/19/21 04:10 05/19/21 04:10 Labs: Laboratory Results - last 24 hr 05/19/21 04:10: WBC 8.9, RBC 4.25 L, Hgb 12.9 L, Hct 41.2, MCV 96.9 H, MCH 30.4, MCHC 31.3 L, RDW Std Deviation 55.0 H, RDW Coeff of Devon 15.3 H, Plt Count 135 L, MPV 11.9, Immature Gran % (Auto) 0.800, Neut % (Auto) 84.8 H, Lymph % (Auto) 5.5 L, Grady % (Auto) 8.5, Eos % (Auto) 0.2, Baso % (Auto) 0.2, Absolute Neuts (auto) 7.6, Absolute Lymphs (auto) 0.49 L, Nucleated RBC % 0, Differential Comment SCANNED 05/19/21 04:10: Sodium 147 H, Potassium 3.6, Chloride 112 H, Carbon Dioxide 28.0, Anion Gap 7, BUN 32 H, Creatinine 1.37 H, Estim Creat Clear Calc 45.14, Est GFR (MDRD) Af Amer 64, Est GFR (MDRD) Non-Af 53 L, BUN/Creatinine Ratio 23.4 H, Glucose 130 H, Calcium 6.9 L Micro: Microbiology 05/17/21 09:55 Nasal Secretion SARS-CoV-2 Antigen (Rapid) - Final Physical Exam Const no apparent distress Resp normal respiratory effort Cardio regular rate and regular rhythm GI soft to palpation Palpation: tender Assessment & Plan Assessment/Plan (1) Incarcerated umbilical hernia: PLAN: The patient had flatus yesterday afternoon and was started on a clear liquid diet yesterday evening which he tolerated. He has not complained of any nausea although he still having abdominal pain which Tylenol is controlling. Patient has not had a bowel movement. Patient refuses to get out of bed. I advised the patient get up and get up to the chair and try to ambulate. The Wright put out 250 cc of the last 4 hours which shows improvement in urine output and I will continue Wright for 24 more hours. The patient has less tachycardia now that he is better hydrated and his creatinine is decreasing. Recheck labs in a.m. Js Colvin MD Pager: [facility] [address] [place] [address] [address] [place] [address] Office:
[2021-05-19] MEDS: Carvedilol 12.5 MG Tablet PO ×2 (09:09→17:58)
[2021-05-19] MEDS: Aspirin 81 MG TAB.CHEW PO (09:10)
[2021-05-19] MEDS: hydroCHLOROthiazide 25 MG Tablet PO (09:10)
[2021-05-19] MEDS: Levothyroxine 75 MCG Tablet PO (09:11)
[2021-05-19] MEDS: Losartan Potassium 100 MG Tablet PO (13:02)
[2021-05-19] MEDS: Atorvastatin Calcium 40 MG Tablet PO (21:02)
[2021-05-20] VITALS (13 sets, daily range): BP systolic 73–117; BP diastolic 46–85; PULSE 70–103; RESP 14–20; TEMP 36.3–36.6; O2SAT 90–98
[2021-05-20] MEDS: 0.9% Normal Saline 1,000 ML 125 ML IV (03:01)
[2021-05-20] MEDS: Levothyroxine 75 MCG Tablet PO (06:34)
[2021-05-20] MEDS: Acetaminophen 325 MG Tablet 650 MG PO ×2 (06:34→21:29)
--- NOTE | 2021-05-20 07:44 | PN.SURG_ITS ---
Subjective Subjective Patient tolerated clear liquids no nausea or vomiting. He did have a bowel movement overnight. He is passing flatus. His abdominal pain is improved. Objective Data Objective Data Vital Signs: Vital Signs Temp Pulse Resp BP Pulse Ox 97.7 F L 94 16 117/85 H 98 05/20/21 03:04 05/20/21 04:59 05/20/21 03:04 05/20/21 03:04 05/20/21 03:04 Oxygen Flow Rate (L/min) 2 Oxygen Delivery Method Nasal Cannula Weight: 263 lb 14.293 oz Body Mass Index (BMI) 37.8 Intake & Output: Intake and Output for Last 24 Hours 05/18/21 05/19/21 05/20/21 23:59 23:59 23:59 Intake Total 4524.17 / 4524.17 4159.58 / 4159.58 947.92 / 947.92 Output Total 775 / 775 925 / 925 325 / 325 Balance 3749.17 / 3749.17 3234.58 / 3234.58 622.92 / 622.92 Lab / Micro Data Result Diagrams: 05/19/21 04:10 05/19/21 04:10 Micro: Microbiology 05/17/21 09:55 Nasal Secretion SARS-CoV-2 Antigen (Rapid) - Final Physical Exam Const oriented x3 and no apparent distress GI soft to palpation and non-tender Assessment & Plan Assessment/Plan (1) Incarcerated umbilical hernia: PLAN: Patient has improved from yesterday. He is tolerating clear liquids and having bowel movement and flatus. I will start him on a regular diet. Patient's urine output has picked up and I will remove his Wright and decrease his IV fluids. Js Colvin MD Pager: [facility] [address] [place] [address], [address] [place] [address] Office:
[2021-05-20] MEDS: Carvedilol 12.5 MG Tablet PO (07:59)
[2021-05-20] MEDS: Aspirin 81 MG TAB.CHEW PO (08:00)
[2021-05-20] MEDS: hydroCHLOROthiazide 25 MG Tablet PO (10:25)
[2021-05-20] MEDS: Losartan Potassium 100 MG Tablet PO (10:25)
--- NOTE | 2021-05-20 12:54 | NURSING ---
Addendum entered by Yaquelin Gonzales 05/20/21 13:06: finally able to print a strip to put on chart. system has froze up again Original Note: reviewed tele, still afib w/controlled rate. unable to print strip for some reason. attempted to just print on 8x10 as well, did not work. unplugged and plugged system back in, still not printing.
[2021-05-20] MEDS: 0.9% Normal Saline 1,000 ML 40 ML IV (16:44)
[2021-05-20] MEDS: Atorvastatin Calcium 40 MG Tablet PO (21:25)
[2021-05-21 00:03] VITALS: PULSE 98
--- NOTE | 2021-05-21 02:33 | PCM.DEATH ---
Preliminary Cause of Preliminary Cause of Preliminary Cause of : Myocardial infarction Principle Diagnosis Problem List: Active Problems Incarcerated umbilical hernia - Resolved with surgery Small bowel obstruction -Resolved with surgery Hospital Course Patient is a 80-year-old male with a significant history of RI status post stent; Hypertension; Hypothyroidism and umbilical hernia who presented to the emergency department with nausea, vomiting and abdominal pain. At the emergency department patient had mild leukocytosis. Abdomen and pelvis CT showed a small bowel obstruction with transition point in the umbilical hernia neck. General Surgeon reduce the hernia at the emergency department. Patient was kept n.p.o. and placed on IV fluids. Patient was taken to the operating room by General Surgeon and had the following procedures after preoperative antibiotics were completed. 1. Exploratory laparotomy 2. Repair of serosal defect to small bowel 3. Partial omentectomy of infarcted omentum and excision of hernia sac 4. Repair of umbilical hernia Because of urinary retention with YVONNE; and tachycardia post surgery patient was given IV fluid boluses and maintenance infusion. Also Wright catheter was placed. Patient initially was n.p.o. for surgery but later was started on clear liquid diet after he passed flatus. With IV fluids his creatinine and tachycardia improved. Patient was able to have a bowel movement post surgery and he continued to pass flatus. His abdominal pain improved. Patient was started on regular diet. His Wright catheter was removed and his IV fluids rate was decreased. On dedicated owner operator of 05/21/2021 patient's after urinating in the bedside commode called for help back to bed. He ambulated a few steps in the bathroom and fell. He moaned. Rapid response was called. Patient was flipped over. It was noted that patient had lost his pulse and was not breathing. A CODE BLUE was called. ACLS was initiated. As ACLS was ongoing family was notified by nursing team. Nursing team reported that family wants ACLS to be stopped. On 05/21/2021 at 0229 patient was pronounced . Physical examination showed a fixed pupils. There was no heart sounds or lung sounds. There was no corneal reflex. Code was started on 015 and ended on 228; all on 05/21/2021 Date of : 05/21/2021. Time of : 228 Immediate cause of (final disease of condition resulting in ): Myocardial infarction Duration: Days/month/years: Minutes Listed conditions leading to cause of (due to or as a consequence of) : Hypertensive heart disease; atherosclerotic cardiovascular disease Day/month/years: Years. Listed other significant conditions contributing to but not resulting in the underlying cause of : Morbid Obesity Did tobacco contribute to : No (patient is a never smoker) Visit Charges Inpatient E&M: 37726 Disch Hosp
--- NOTE | 2021-05-21 02:33 | PCM.CODE.SUM ---
Code Blue Report Code Blue Summary Code Blue Summary: Patient went to the bathroom to urinate in the water closet. He called the nursing staff to help him back to bed. Per nursing staff patient stood up and took a few steps in the bathroom. He fell face downwards. Patient moaned. Rapid response was called. Patient was flipped over. It was noted that patient was not breathing and he pulseless. ALBERTO NICHOLE was called. ACLS with multiple rounds of epinephrine was given as patient was in PEA majority of the time. Patient occasionally regained a pulse, and was in regular rhythm for which reason atropine was also given. Patient was started on epinephrine drip. Patient lost her pulses and ACLS continued. Patient received magnesium and bicarbonate. As ACLS was ongoing nursing staff discussed with family who said code should be stopped. Subsequently the code was stopped. Patient was pronounced on 05/21/2021 at 0229. Code was started on 0155 05/21/2021 and stopped on 0229 05/21/2021.
[2021-05-21 02:59] VITALS: PULSE 30; PULSE 80
--- NOTE | 2021-05-21 03:04 | NURSING ---
pt called to use bathroom appx 0140 walked with rn to bathroom asked for privacy call light in reach, at appx 0147 pt called to get off commode rn in to assist pt stated he only did #1, got off commode and was walking across bathroom talking to nurse no complaints voiced pt went forward to floor with no warning was moaning on floor called for staff assist, at 0151 called ms 3 for more hands to assist pt and staff, at 0153 called BLOW DOWN OPERATOR as pt was only moaning and not responding with words, at 0155 pt coded no pulse, agonal breathing, code blue called cpr started. see code documentation.
--- NOTE | 2021-05-21 03:19 | NURSING ---
PT RECEIVED 160ML OF IV FLUIDS IN THE LAST HOUR OF LIFE.
--- NOTE | 2021-05-21 03:33 | NURSING ---
at appx 0220 called son to notify him of pt change in condition and that cpr had been started to see what pt and family wishes would be regarding heroic measures pt son spoke to pt brother and called [facility] back at appx 0227 and asked for pt to be kept comfortable but no cpr or heroic measures to be continued son will be in. Dr. August notified. pt . at appx 0325 pt son here and is aware of pt . Dr. Ovalle aware and came in to talk to son also.
== END 2021-05-21 02:29 | DRG 353 ==
LOC: ED 04:38 → SDC 06:18 → ACINP 06:20 → SDC 08:50 → MS2 08:50
PROVIDERS: Surgery; Admitting Provider Surgery; Emergency Provider Emergency Medicine; Visit Provider Surgery
PROC: 0WQF0ZZ Repair Abdominal Wall, Open Approach (ICD-10-PCS; CPT 49320; principal; 2021-05-17 14:15)
DX: K42.0 Umbilical hernia with obstruction, without gangrene (principal); I21.9 Acute myocardial infarction, unspecified; K55.069 Acute infarction of intestine, part and extent unspecified; E03.9 Hypothyroidism, unspecified; H91.92 Unspecified hearing loss, left ear; E86.0 Dehydration; I25.10 Atherosclerotic heart disease of native coronary artery without angina pectoris; I11.9 Hypertensive heart disease without heart failure; E66.01 Morbid (severe) obesity due to excess calories; Z79.899 Other long term (current) drug therapy; Z79.82 Long term (current) use of aspirin; Z79.890 Hormone replacement therapy; Z95.5 Presence of coronary angioplasty implant and graft; Z68.39 Body mass index [BMI] 39.0-39.9, adult
CPT/HCPCS: 36415; 74176; 80048; 80053; 83605; 83690; 84484; 85025; 87426; 88302; 88304; 92950; 93005; 99285; J7030; J7040; A4216; J2405; J3475